=== PATIENT | female | born 2005 | race Hispanic/Latino ===

== ENCOUNTER 2024-04-10 13:59 | Emergency (ER) | payer OTHER, SELFPAY ==
--- NOTE | 2024-04-10 15:10 | ER ---
Nurse's Notes [facility] Name: Brendan Lindsey Age: 18 yrs Sex: Female : 2005 Arrival Date: 04/10/2024 Time: 13:59 Bed IW10 Private MD: Diagnosis: Acute tonsillitis, unspecified;Acute suppurative otitis media-bilateral Presentation: 04/10 14:18 Chief complaint: Patient states: R EAR PAIN WITH SORE THROAT x2 DAYS. Coronavirus bp screen: At this time, the client does not indicate any symptoms associated with coronavirus-19. Ebola Screen: No symptoms or risks identified at this time. Initial Sepsis Screen: Does the patient meet any 2 criteria? No. Patient's initial sepsis screen is negative. Does the patient have a suspected source of infection? No. Patient's initial sepsis screen is negative. Risk Assessment: Do you want to hurt yourself or someone else?. Onset of symptoms is unknown. 14:18 Method Of Arrival: Ambulatory bp 14:18 Acuity: LALA 4 bp Triage Assessment: 14:19 General: Appears uncomfortable, Behavior is calm, cooperative, appropriate for age. bp Pain: Complains of pain in right ear and neck. EENT: Throat is reddened. Neuro: No deficits noted. Cardiovascular: No deficits noted. Respiratory: No deficits noted. GI: No signs and/or symptoms were reported involving the gastrointestinal system. : No signs and/or symptoms were reported regarding the genitourinary system. Derm: No deficits noted. Musculoskeletal: No deficits noted. Historical: - Allergies: 14:19 No Known Allergies; bp - Home Meds: 14:19 None [Active]; bp - PMHx: 14:19 None; bp - Immunization history:: Adult Immunizations. - Infectious Disease History:: Denies. - Social history:: Smoking status: Patient denies any tobacco usage or history of. Vital Signs: 14:18 BP 121 / 81; Pulse 75; Resp 18; Temp 98.4; Pulse Ox 100% ; bp ED Course: 14:03 Patient arrived in ED. ra3 14:04 Jose Singh PA is PHCP. cp 14:04 Samy Moss MD is Attending Physician. cp 14:19 Triage completed. bp 14:19 Arm band placed on. bp 16:03 Ned, Kylee, RN is Primary Nurse. iw Administered Medications: 16:12 Drug: Dexamethasone PO 10 mg PO once Route: PO; iw 16:12 Drug: Amoxicillin-Clavulanate PO 875 mg PO once Route: PO; iw 16:12 Drug: Lortab PO Liquid 15 ml PO once Route: PO; iw 16:12 Drug: Ibuprofen PO 600 mg PO once Route: PO; iw Outcome: 15:10 Discharge ordered by MD. cp 15:31 Patient left the ED. iw 16:13 Patient left the ED. iw Signatures: Kylee Marino, RN RN iw Jose Singh PA PA Luis Carlos Espino, RN RN Daisha Landers 3
--- NOTE | 2024-04-10 15:10 | EDPHYS ---
Physician Documentation [facility] Name: Brendan Lindsey Age: 18 yrs Sex: Female : 2005 Arrival Date: 04/10/2024 Time: 13:59 Bed IW10 Private MD: ED Physician Samy Moss HPI: 04/10 14:30 This 18 yrs old Female presents to ER via Ambulatory with complaints of Sore cp Throat - x3days, Ear Pain. 14:30 The patient presents with sore throat. The patient describes throat pain as scratchy. cp Onset: The symptoms/episode began/occurred 3 day(s) ago. 14:30 Severity of symptoms: in the emergency department the symptoms are unchanged, despite cp home interventions. Associated signs and symptoms: Pertinent positives: earache, Pertinent negatives cough, fever, headache. Historical: - Allergies: 14:19 No Known Allergies; bp - Home Meds: 14:19 None [Active]; bp - PMHx: 14:19 None; bp - Immunization history:: Adult Immunizations. - Infectious Disease History:: Denies. - Social history:: Smoking status: Patient denies any tobacco usage or history of. ROS: 14:35 Constitutional: Negative for body aches, chills, fever, cp 14:35 Eyes: Negative for injury, pain, redness, and discharge, cp 14:35 ENT: Positive for difficulty swallowing, ear pain, sore throat, Negative for drainage from ear(s), rhinorrhea, sinus congestion, sinus pain, difficulty handling secretions, 14:35 Respiratory: Negative for cough, shortness of breath, wheezing, 14:35 Abdomen/GI: Negative for abdominal pain, vomiting, diarrhea, constipation, 14:35 Neuro: Negative for headache, 14:35 All other systems are negative, Exam: 14:40 Constitutional: The patient appears in no acute distress, alert, awake, non-toxic, well cp developed, well nourished, 14:40 Head/Face: Normocephalic, atraumatic. cp 14:40 Eyes: Periorbital structures: appear normal, Conjunctiva: normal, no exudate, no injection, Sclera: no appreciated abnormality, Lids and lashes: appear normal, bilaterally, 14:40 ENT: External ear(s): are unremarkable, Ear canal(s): are normal, clear, TM's: bulging, bilaterally, erythema, that is moderate, bilaterally, Nose: is normal, Mouth: Lips: moist, Oral mucosa: moist, Posterior pharynx: Airway: no evidence of obstruction, patent, Tonsils: bilaterally enlarged, with erythema, with exudate, Uvula: midline, Voice: is normal, 14:40 Neck: ROM/movement: is normal, is supple, no meningismus, no nuchal rigidity, 14:40 Chest/axilla: Inspection: normal, 14:40 Cardiovascular: Rate: normal, 14:40 Respiratory: the patient does not display signs of respiratory distress, Respirations: normal, no use of accessory muscles, no retractions, labored breathing, is not present, Breath sounds: are clear throughout, no decreased breath sounds, no stridor, no wheezing, 14:40 Abdomen/GI: Exam negative for discomfort, distension, guarding, Inspection: abdomen appears normal, Vital Signs: 14:18 BP 121 / 81; Pulse 75; Resp 18; Temp 98.4; Pulse Ox 100% ; bp MDM: 14:16 Patient medically screened. cp 14:30 Differential diagnosis: apthous stomatitis, apthous ulcer, group A strep tonsillitis, cp influenza, laryngitis, mononucleosis, peritonsillar abscess pharyngitis, retropharyngeal abcess. 15:10 Data reviewed: vital signs, nurses notes, lab test result(s), and as a result, I will cp discharge patient. 15:10 Counseling: I had a detailed discussion with the patient and/or guardian regarding the cp historical points, exam findings, and any diagnostic results supporting the discharge/admit diagnosis, lab results, to return to the emergency department if symptoms worsen or persist or if there are any questions or concerns that arise at home. Administered Medications: 16:12 Drug: Dexamethasone PO 10 mg PO once Route: PO; iw 16:12 Drug: Amoxicillin-Clavulanate PO 875 mg PO once Route: PO; iw 16:12 Drug: Lortab PO Liquid 15 ml PO once Route: PO; iw 16:12 Drug: Ibuprofen PO 600 mg PO once Route: PO; iw Disposition Summary: 04/10/24 15:10 Discharge Ordered Notes: Location: Home cp Problem: new cp Symptoms: have improved cp Condition: Stable cp Diagnosis - Acute tonsillitis, unspecified cp - Acute suppurative otitis media - bilateral cp Followup: cp - With: Private Physician - When: 2 - 3 days - Reason: Worsening of condition Discharge Instructions: - Discharge Summary Sheet cp - Otitis Media, Adult cp - Tonsillitis cp Forms: - Medication Reconciliation Form cp - Antibiotic Education cp - Prescription Opioid Use cp - Patient Portal Instructions cp - Leadership Thank You Letter cp Prescriptions: - Lidocaine Viscous - take 5 milliliter ORAL route every 4-6 hours; 240 milliliter; Refills: 0, cp Product Selection Permitted - Augmentin 875-125 mg Oral Tablet - take 1 tablet ORAL route every 12 hours for 10 days; 20 tablet; Refills: 0, cp Product Selection Permitted - Ibuprofen 600 mg Oral tablet - take 1 tablet ORAL route every 8 hours As needed take with food; 30 tablet; cp Refills: 0, Product Selection Permitted Addendum: 04/12/2024 17:05 Co-signature as Attending Physician, Samy Moss MD I reviewed the patient's care r n provided by the Advanced Practice Provider and agree with the diagnosis and treatment plan. Signatures: Kylee Marino, RN Samy Bolivar MD MD rn Page, Corey, PA PA cp Luis Carlos Baca, RN RN bp
[2024-04-10 15:47] VITALS: BP 121/81; TEMP 98.4; O2SAT 100
[2024-04-10] MEDS ORDERED: AMOX/K CLAV 875 MG TAB ONE (16:05)
[2024-04-10] MEDS ORDERED: dexAMETHasone 4 MG TAB ONE (16:05)
[2024-04-10] MEDS ORDERED: IBUPROFEN 200 MG TAB PO ONE (16:06)
[2024-04-10] MEDS ORDERED: HYDROCOD 2.5mg-ACETAMIN 108mg/5mL Soln ONE (16:06)
== END 2024-04-10 16:13 | disposition home or self-care (01) ==
LOC: ER 13:59
DX: J03.90 Acute tonsillitis, unspecified (principal); H66.003 Acute suppurative otitis media without spontaneous rupture of ear drum, bilateral
CPT/HCPCS: 99282; J8540

== ENCOUNTER 2024-06-02 11:02 | Emergency (ER) | payer SELFPAY ==
--- OUTSIDE RECORDS SUMMARY | 2024-06-02 11:05 | XMS REPORT | Continuity of Care Document ---
Author Name Unknown Address [address] [place] [address] [facility] thconnect Address [address] [place] [address] Care Team Providers Care Thread Tool Grinder Set Up Operator Name Role Phone DARRICK MELTON Primary Care Physician Unavailab EFRA Rinaldi Attending Clinician Unavail YANCY Love Attending Clinician YANCY Bravo Attending Clinician Yancy Bravo MD Attending Clinician [phone] MURPHY TRIPP Attending Clinician Unavailable Nurse, [facility] Attending Clinician Un available Murphy Tripp MD Attending Clinician [phone] Doctor Unassigned, [place] Attending Clinician U eusebio 2, [facility] Attending Clinician Unavailable KRISTEN JACKSON Attending Clinician Unavailable Astrid Landaverde MD Attending Clinician [phone] Elías CAMPOS Attending Clinician Unavailable Elías Kay Attending Clinician [phone] Kristen Jackson PA-C Attending Clinician [phone] JENNIFER RAMOS Attending Clinician Unavailable Jennifer Ramos NP Attending Clinician [phone] ANGELAELIJAH JOHNSTON B Attending Clinician Unavailable AngelaAlba Vergaray B Attending Clinician [phone] AfuwapeDianakthomas O Attending Clinician Unavailab le Nurse, [facility] Attending Clinician Unava ilable Provider, [facility] Attending Clinician Unavailable Lala RN, Joyce Baker Attending Clinician Unavailab le Only, [facility] Test Attending Clinician Unavailzoya Cochran MD, Poppy Attending Clinician [phone] POPPY COCHRAN Attending Clinician Unavailable Carmita Goldman Attending Clinician [phone] KRISTEN JACKSON Admitting Clinician Unavailable Payers Payer Name Policy Type Policy Number Effective Date Expirati on Date Source [facility] [id number] 2018 00:00:00 [facility] [place] [facility] [id number] 2024 00:00:00 Problems Condition Name Condition Details Condition Category Status Onset Date Resolution Date Last Treatment Date Treating Clinician Comments Source Encounter for management and injection of depo-Prove ra Encounter for management and injection of depo-Prove ra Disease Active 2022-07 0- 00:00: 00 [facility] Iron deficiency anemia due to chronic blood loss Iron deficiency anemia due to chronic blood loss Disease Active 01-18 00:00: 00 [facility] No known active problems No known active problems Disease [facility] Allergies, Adverse Reactions, Alerts Allergy Name Allergy Type Status Severity Reaction(s) Onset Date Inactive Date Treating Clinician Comments Source Unable to Assess DA Active U 09-23 00:00: 00 [facility] No Known Drug Allergie s DA Active U 09-23 00:00: 00 [facility] NO KNOWN ALLERGIE S Drug Class Active [facility] Social History Social Habit Start Date Stop Date Quantity Comments Source History SDOH Alcohol Std Drinks [facility] History SDOH Alcohol Binge [facility] History SDOH Alcohol Comment [facility] Gender identity [facility] of Social function 2024-03-28 00:00:00 2024-03-28 00:00:00 [facility] Alcoholic beverage intake 2024-03-28 00:00:00 2024-03-28 00:00:00 Lifetime non-drinker (finding) [facility] Alcohol intake 2023-04-26 00:00:00 2023-04-26 00:00:00 Lifetime non-drinker (finding) [facility] Exposure to SARS-CoV-2 (event) 2022-10-23 00:00:00 2022-11-02 16:50:00 Not sure [facility] Tobacco use and exposure 2022-08-03 00:00:00 2022-08-03 00:00:00 Smokeless tobacco non-user [facility] History SDOH Alcohol Frequency 2019-05-05 00:00:00 2019-05-05 00:00:00 1 [facility] Sex assigned at 2004 00:00:00 2005 00:00:00 [facility] Smoking Status Start Date Stop Date Source Never smoked tobacco [facility] Medications Ordered Medication Name Filled Medication Name Start Date Stop Date Current Medication? Ordering Clinician Indication Dosage Frequency Signature (SIG) Comments Components Source medroxyPROG ESTERone (DEPO-PROVE RA) syringe 150 mg 2022-07 016 17:00: 00 04-26 16:08 :00 No [id number] 150mg [facility] medroxyPROG ESTERone (DEPO-PROVE RA) syringe 150 mg 01-29 14:30: 00 01-29 13:52 :00 No [id number] 150mg [facility] NUVARING 0.12-0.015 mg/24 hr vaginal insert 01-18 00:00: 00 01-29 00:00 :00 No [id number] 1{each} Insert 1 Each into vagina every 3 (three) weeks. Insert vaginally and leave in place for 3 consecutiv e weeks, then remove for 1 week. [facility] NaCl 0.9% (NS) bolus infusion 1,000 mL 01-14 23:30: 00 01-14 23:36 :00 No 1000mL at 999 mL/hr, 1,000 mL, IV Infusion, ONCE, 1 dose, On Wed01/14/23 at 1830, STAT [facility] ondansetron (ZOFRAN (PF)) injection 4 mg 01-14 22:15: 00 01-14 22:51 :00 No 4mg 4 mg, Slow IV Push, ONCE, 1 dose, On Wed01/14/23 at 1715, DANY [facility] ondansetron 4 mg disintegrat ing tablet 01-14 00:00: 00 03-28 00:00 :00 No [id number] 4mg Take 1 tablet by mouth every 8 (eight) hours as needed for Nausea and Vomiting (N/V). [facility] NaCl 0.9% (NS) bolus infusion 1,000 mL 01-08 08:45: 00 01-08 08:48 :00 No 1000mL at 999 mL/hr, 1,000 mL, IV Infusion, ONCE, 1 dose, On Wed01/08/23 at 0345, DANY [facility] cloNIDine (CATAPRES) tablet 0.1 mg 01-08 08:45: 00 01-08 08:52 :00 No .1mg 0.1 mg, Oral, ONCE, 1 dose, On Wed01/08/23 at 0345, STAT [facility] diazePAM (VALIUM) tablet 5 mg 01-08 08:45: 00 01-08 08:52 :00 No 5mg 5 mg, Oral, ONCE, 1 dose, On Wed01/08/23 at 0345, DANY [facility] proMETHazin e (PHENERGAN) 12.5 mg in NaCl 0.9% (NS) 50 mL IV piggyback 01-08 08:00: 01-08 08:10 :00 No 12.5mg 12.5 mg, IV Piggyback, ONCE, 1 dose, On Wed01/08/23 at 0300, DANY [facility] clonazePAM (KLONOPIN) 0.5 mg tablet 01-08 00:00: 00 03-28 00:00 :00 No [id number] .5mg Take 1 tablet by mouth 2 (two) times daily as needed (anxiety and/or irritabili tiy). [facility] ondansetron 4 mg disintegrat ing tablet 01-08 00:00: 00 03-28 00:00 :00 No [id number] 4mg Take 1 tablet by mouth every 12 (twelve) hours as needed for Nausea and Vomiting (N/V). [facility] hydrOXYzine (VISTARIL) 25 mg capsule 01-08 00:00: 00 01-14 04:59 :00 No [id number] 25mg Take 1 capsule by mouth 3 (three) times daily as needed for Anxiety for up to 5 days. [facility] medroxyPROG ESTERone (DEPO-PROVE RA) injection 150 mg 11-03 20:30: 00 11-03 19:44 :00 No [id number] 150mg [facility] fluconazole 150 mg tablet 11-02 00:00: 00 01-08 00:00 :00 No [facility] cefTRIAXone (ROCEPHIN) injection 500 mg 08-07 20:45: 00 08-07 20:39 :00 No [id number] 500mg [facility] doxycycline hyclate 100 mg tablet 08-07 00:00: 00 01-08 00:00 :00 No [id number] 100mg Take 1 tablet by mouth in the morning and 1 tablet in the evening. [facility] doxycycline hyclate 100 mg tablet 08-06 00:00: 00 08-07 00:00 :00 No [id number] 100mg Take 1 tablet by mouth in the morning and 1 tablet in the evening. [facility] doxycycline hyclate 100 mg tablet 08-05 00:00: 08-06 00:00 :00 No [id number] 100mg Take 1 tablet by mouth in the morning and 1 tablet in the evening. Do all this for 7 days. [facility] medroxyPROG ESTERone (DEPO-PROVE RA) syringe 150 mg 08-03 23:30: 00 08-03 22:17 :00 No [id number] 150mg [facility] ibuprofen 600 mg tablet 2020-07 00:00: 01-08 00:00 :00 No [id number] 600mg Take 1 tablet by mouth every 8 (eight) hours as needed for Pain (scale 4-6). [facility] norgestimat e-ethinyl estradiol 0.25-35 mg-mcg per tablet 2018-07 00:00: 01-08 00:00 :00 No [id number] 2 tab QD until menses stops, then take 1 tab QD. Skip placebo pills and take active pills continuous ly. [facility] ferrous sulfate 325 mg (65 mg iron) EC tablet 2018-07 00:00: 00 03-28 00:00 :00 No [id number] 325mg Take 1 tablet by mouth 2 (two) times daily. [facility] proMETHazin e 25 mg tablet 2018-07 00:00: 01-08 00:00 :00 No [id number] 25mg Take 1 tablet by mouth every 6 (six) hours as needed for Nausea and Vomiting (N/V). [facility] Vital Signs Vital Name Observation Time Observation Value Comments S fatuma Systolic blood pressure 2024-03-28 20:28:00 135 mm[Hg] [facility] Diastolic blood pressure 2024-03-28 20:28:00 81 mm[Hg] [facility] Heart rate 2024-03-28 20:28:00 69 /min [facility] Respiratory rate 2024-03-28 20:28:00 16 /min [facility] Body height 2024-03-28 20:28:00 170.2 cm [facility] Body weight 2024-03-28 20:28:00 54.885 kg [facility] BMI 2024-03-28 20:28:00 18.95 kg/m2 [facility] Systolic blood pressure 2023-04-26 16:04:00 127 mm[Hg] [facility] Diastolic blood pressure 2023-04-26 16:04:00 76 mm[Hg] [facility] Heart rate 2023-04-26 16:04:00 76 /min [facility] Body temperature 2023-04-26 16:04:00 36.83 Sarah [facility] Respiratory rate 2023-04-26 16:04:00 18 /min [facility] Body weight 2023-04-26 16:04:00 59.693 kg [facility] BMI 2023-04-26 16:04:00 21.24 kg/m2 [facility] Body mass index (BMI) [Percentile] Per age and sex 2023-04-26 16:04:00 47.09 % [facility] Systolic blood pressure 2023-04-20 19:00:00 122 mm[Hg] [facility] Diastolic blood pressure 2023-04-20 19:00:00 84 mm[Hg] [facility] Heart rate 2023-04-20 19:00:00 64 /min [facility] Body temperature 2023-04-20 19:00:00 36.56 Sarah [facility] Body height 2023-04-20 19:00:00 167.6 cm [facility] Body weight 2023-04-20 19:00:00 59.875 kg [facility] BMI 2023-04-20 19:00:00 21.31 kg/m2 [facility] Body mass index (BMI) [Percentile] Per age and sex 2023-04-20 19:00:00 48.05 % [facility] Systolic blood pressure 2023-01-29 13:48:00 105 mm[Hg] [facility] Diastolic blood pressure 2023-01-29 13:48:00 64 mm[Hg] [facility] Heart rate 2023-01-29 13:48:00 65 /min [facility] Body temperature 2023-01-29 13:48:00 36.72 Sarah [facility] Respiratory rate 2023-01-29 13:48:00 18 /min [facility] Body height 2023-01-29 13:48:00 167.6 cm [facility] Body weight 2023-01-29 13:48:00 60.147 kg [facility] BMI 2023-01-29 13:48:00 21.40 kg/m2 [facility] Body mass index (BMI) [Percentile] Per age and sex 2023-01-29 13:48:00 49.96 % [facility] Systolic blood pressure 2023-01-18 20:42:00 110 mm[Hg] [facility] Diastolic blood pressure 2023-01-18 20:42:00 68 mm[Hg] [facility] Heart rate 2023-01-18 20:42:00 72 /min [facility] Body temperature 2023-01-18 20:42:00 36.78 Sarah [facility] Body weight 2023-01-18 20:42:00 59.33 kg [facility] Systolic blood pressure 2023-01-15 00:39:00 131 mm[Hg] [facility] Diastolic blood pressure 2023-01-15 00:39:00 79 mm[Hg] [facility] Heart rate 2023-01-15 00:39:00 69 /min [facility] Respiratory rate 2023-01-15 00:39:00 18 /min [facility] Oxygen saturation in Arterial blood by Pulse oximetry 2023-01-15 00:39:00 100 /min [facility] Body temperature 2023-01-14 20:55:00 36.61 Sarah [facility] Body weight 2023-01-14 20:55:00 61.236 kg [facility] BMI 2023-01-14 20:55:00 21.79 kg/m2 [facility] Body mass index (BMI) [Percentile] Per age and sex 2023-01-14 20:55:00 54.88 % [facility] Systolic blood pressure 2023-01-08 09:00:00 117 mm[Hg] [facility] Diastolic blood pressure 2023-01-08 09:00:00 69 mm[Hg] [facility] Heart rate 2023-01-08 09:00:00 95 /min [facility] Body temperature 2023-01-08 09:00:00 37 Sarah [facility] Respiratory rate 2023-01-08 09:00:00 18 /min [facility] Oxygen saturation in Arterial blood by Pulse oximetry 2023-01-08 09:00:00 100 /min [facility] Body height 2023-01-08 06:45:00 167.6 cm [facility] Body weight 2023-01-08 06:45:00 60.737 kg [facility] BMI 2023-01-08 06:45:00 21.61 kg/m2 [facility] Body mass index (BMI) [Percentile] Per age and sex 2023-01-08 06:45:00 52.78 % [facility] Systolic blood pressure 2022-11-03 19:41:00 121 mm[Hg] [facility] Diastolic blood pressure 2022-11-03 19:41:00 79 mm[Hg] [facility] Heart rate 2022-11-03 19:41:00 69 /min [facility] Body temperature 2022-11-03 19:41:00 37 Sarah [facility] Respiratory rate 2022-11-03 19:41:00 16 /min [facility] Body height 2022-11-03 19:41:00 170.2 cm [facility] Body weight 2022-11-03 19:41:00 66.679 kg [facility] BMI 2022-11-03 19:41:00 23.02 kg/m2 [facility] Body mass index (BMI) [Percentile] Per age and sex 2022-11-03 19:41:00 68.21 % [facility] Oxygen saturation in Arterial blood by Pulse oximetry 2022-11-03 19:41:00 99 /min [facility] Systolic blood pressure 2022-11-02 21:51:00 125 mm[Hg] [facility] Diastolic blood pressure 2022-11-02 21:51:00 72 mm[Hg] [facility] Heart rate 2022-11-02 21:51:00 97 /min [facility] Body temperature 2022-11-02 21:51:00 37 Sarah [facility] Respiratory rate 2022-11-02 21:51:00 16 /min [facility] Body height 2022-11-02 21:51:00 170.2 cm [facility] Body weight 2022-11-02 21:51:00 63.504 kg [facility] BMI 2022-11-02 21:51:00 21.93 kg/m2 [facility] Body mass index (BMI) [Percentile] Per age and sex 2022-11-02 21:51:00 57.21 % [facility] Oxygen saturation in Arterial blood by Pulse oximetry 2022-11-02 21:51:00 98 /min [facility] Systolic blood pressure 2022-08-07 20:20:00 132 mm[Hg] [facility] Diastolic blood pressure 2022-08-07 20:20:00 65 mm[Hg] [facility] Body height 2022-08-07 20:20:00 167.6 cm [facility] Body weight 2022-08-07 20:20:00 68.04 kg [facility] BMI 2022-08-07 20:20:00 24.21 kg/m2 [facility] Body mass index (BMI) [Percentile] Per age and sex 2022-08-07 20:20:00 77.75 % [facility] Systolic blood pressure 2022-08-03 21:25:00 125 mm[Hg] [facility] Diastolic blood pressure 2022-08-03 21:25:00 75 mm[Hg] [facility] Heart rate 2022-08-03 21:25:00 86 /min [facility] Body temperature 2022-08-03 21:25:00 37.22 Sarah [facility] Respiratory rate 2022-08-03 21:25:00 18 /min [facility] Body height 2022-08-03 21:25:00 162.6 cm [facility] Body weight 2022-08-03 21:25:00 67.586 kg [facility] BMI 2022-08-03 21:25:00 25.58 kg/m2 [facility] Body mass index (BMI) [Percentile] Per age and sex 2022-08-03 21:25:00 84.73 % [facility] Procedures Procedure Date / Time Performed Performing Clinician Source POCT TEST 2024-03-28 00:00:00 Yancy Alcaraz [facility] POCT TEST 2023-04-20 00:00:00 Murphy Tripp [facility] POCT TEST 2023-01-29 13:52:00 Murphy Tripp [facility] CONSENT FOR CONTRACEPTION 2023-01-29 05:01:00 Doctor Unassigned, [place] [facility] POCT TEST 2023-01-14 23:45:00 Elías Campos [facility] URINALYSIS 2023-01-14 23:41:00 Elías Campos [facility] ASSIGNMENT OF BENEFITS 2023-01-14 21:48:15 Docto r Unassigned, [place] [facility] LIPASE 2023-01-14 21:13:00 Elías Campos [facility] MAGNESIUM 2023-01-14 21:13:00 Elías Campos [facility] COMP. METABOLIC PANEL ([id number]) 2023-01-14 21:13:00 Elías Campos [facility] CBC WITH DIFF 2023-01-14 21:13:00 Elías Campos [facility] CONSENT/REFUSAL FOR DIAGNOSIS AND TREATMENT 2023-01-14 20:30:50 Doctor Unassigned, [place] [facility] THYROID STIMULATING HORMONE 2023-01-08 07:14:00 Jennifer Ramos [facility] COMP. METABOLIC PANEL ([id number]) 2023-01-08 07:14:00 Jennifer Ramos [facility] IRON PANEL 2023-01-08 07:14:00 Adam Jacques [facility] ETHANOL 2023-01-08 07:14:00 Jennifer Ramos [facility] CBC WITH DIFF 2023-01-08 07:14:00 Jennifer Ramos [facility] URINALYSIS 2023-01-08 07:14:00 Jennifer Ramos [facility] POCT TEST 2023-01-08 07:14:00 Jennifer Raoms [facility] URINE DRUG (IMMUNOASSAY) - COMPREHENSIVE DRUG SCREEN W/O REFLEX 2023-01-08 07:14:00 Jennifer Ramos [facility] CONSENT/REFUSAL FOR DIAGNOSIS AND TREATMENT 2023-01-08 06:40:45 Doctor Unassigned, [place] [facility] POCT TEST 2022-11-02 22:05:00 Elijah Miller [facility] CONSENT/REFUSAL FOR DIAGNOSIS AND TREATMENT 2022-11-02 21:43:43 Doctor Unassigned, [place] [facility] US PELVIS COMPLETE WITH TRANSVAGINAL 2022-08-14 19:36:19 Kristen Jackson [facility] NOTICE OF PRIVACY PRACTICES 2022-08-14 19:07:27 Doctor Unassigned, [place] [facility] CONSENT/REFUSAL FOR DIAGNOSIS AND TREATMENT 2022-08-03 21:16:55 Doctor Unassigned, [place] [facility] POCT TEST 2022-08-03 00:00:00 Rayna Jackson [facility] Encounters Start Date/Time End Date/Time Encounter Type Admission Type Attending [facility] Care Department Encounter ID Source 2021-05-13 03:21:11 Emergency [facility] [id number] [facility] 2024-05-06 14:09:34 2024-05-06 14:09:34 Outpatient SFA [id number] Jose Gupta 2024-03-29 08:15:00 2024-03-29 08:15:00 Outpatient R EFRA DUONG [facility] [id number] [facility] 2024-03-28 15:45:00 2024-03-28 15:45:00 [facility] 1.2.840.114 350.1.13.10 4.2.7.2.686 [id number] 134 [id number] [facility] 2024-03-28 15:45:00 2024-03-28 15:44:53 Outpatient R RUBIO-PATRICIO S, YANCY RUBIO-PATRICIO S, YANCY [facility] [id number] [facility] 2024-03-28 15:00:00 2024-03-28 15:00:00 Outpatient R RUBIO-PATRICIO S, YANCY RUBIO-PATRICIO S, YANCY [facility] [id number] [facility] 2024-03-28 15:00:00 2024-03-28 15:00:00 Outpatient R RUBIO-PATRICIO S, YANCY RUBIO-PATRICIO S, YANCY [facility] [id number] [facility] 2023-07-19 09:30:00 2023-07-19 09:30:00 Outpatient R MURPHY TRIPP [facility] [id number] [facility] 2023-04-26 10:30:00 2023-04-26 10:53:09 Outpatient R MURPHY TRIPP [facility] [id number] [facility] 2023-04-26 10:30:00 2023-04-26 10:53:09 Nurse Visit Nurse, [facility] Murphy Tripp [facility] 1.2.840.114 350.1.13.10 4.2.7.2.686 [id number] [facility] 2023-04-21 00:00:00 2023-04-21 00:00:00 Patient Secure Msg Doctor Unassigned, [place] [facility] 1.2.840.114 350.1.13.10 4.2.7.2.686 [id number] [facility] 2023-04-21 00:00:00 2023-04-21 00:00:00 Telephone Murphy Tripp [facility] 1.2.840.114 350.1.13.10 4.2.7.2.686 [id number] [facility] 2023-04-21 00:00:00 2023-04-21 00:00:00 Telephone Murphy Tripp [facility] 1.2.840.114 350.1.13.10 4.2.7.2.686 [id number] [facility] 2023-04-20 14:45:00 2023-04-20 14:59:32 End Polisher Visit 2, [facility] Murphy Tripp [facility] 1.2.840.114 350.1.13.10 4.2.7.2.686 [id number] [facility] 2023-04-20 14:00:00 2023-04-20 14:42:19 Outpatient R CYNTHIA TRIPPEN [facility] [id number] [facility] 2023-04-20 14:00:00 2023-04-20 14:42:19 Office Visit Murphy Tripp [facility] 1.2.840.114 350.1.13.10 4.2.7.2.686 [id number] [facility] 2023-01-29 15:00:00 2023-01-29 15:00:00 Outpatient R [facility] [id number] [facility] 2023-01-29 08:00:00 2023-01-29 08:47:44 Outpatient R MURPHY TRIPP [facility] [id number] [facility] 2023-01-29 08:00:00 2023-01-29 08:47:44 Nurse Visit Nurse, [facility] Adum, Murphy Garcia [facility] 1..840.114 350.1.13.10 4.2.7.2.686 [id number] [facility] 2023-01-29 00:00:00 2023-01-29 00:00:00 Orders Only Doctor Unassigned, [place] [facility] 1..840.114 350.1.13.10 4.2.7.2.686 [id number] [facility] 2023-01-27 00:00:00 2023-01-27 00:00:00 Patient Secure Msg Doctor Unassigned, [place] [facility] 1..840.114 350.1.13.10 4.2.7.2.686 [id number] [facility] 2023-01-26 14:30:00 2023-01-26 14:30:00 Outpatient R [facility] [id number] [facility] 2023-01-25 00:00:00 2023-01-25 00:00:00 Telephone Murphy Tripp [facility] 1..840.114 350.1.13.10 4.2.7.2.686 [id number] [facility] 2023-01-18 15:30:00 2023-01-18 16:17:02 Outpatient R MURPHY TRIPP [facility] [id number] [facility] 2023-01-18 15:30:00 2023-01-18 16:17:02 Office Visit Murphy Tripp [facility] 1.2.840.114 350.1.13.10 4.2.7.2.686 [id number] [facility] 2023-01-14 15:56:00 2023-01-14 19:43:00 Emergency X ANDRES, Elías [facility] ERT [id number] [facility] 2023-01-14 15:56:00 2023-01-14 19:43:00 Emergency Elías Campos [facility] 1.2.840.114 350.1.13.10 4.2.7.2.686 [id number] [facility] 2023-01-14 00:00:00 2023-01-14 00:00:00 Telephone DamienKristen berger [facility] 1.2.840.114 350.1.13.10 4.2.7.2.686 [id number] [facility] 2023-01-08 01:51:00 2023-01-08 04:25:00 Emergency X JENNIFER RAMOS [facility] ERT [id number] [facility] 2023-01-08 01:51:00 2023-01-08 04:25:00 Emergency Jennifer Ramos [facility] 1.2.840.114 350.1.13.10 4.2.7.2.686 [id number] [facility] 2022-11-24 14:30:00 2022-11-24 14:30:00 Outpatient R YANCY CHERY MARISOL [facility] [id number] [facility] 2022-11-03 14:30:00 2022-11-03 14:42:51 Outpatient R KRISTEN JACKSON [facility] [id number] [facility] 2022-11-03 14:30:00 2022-11-03 14:42:51 Nurse Visit Nurse, [facility] Kristen Jackson [facility] 1.2.840.114 350.1.13.10 4.2.7.2.686 [id number] [facility] 2022-11-02 16:54:00 2022-11-02 17:46:00 Emergency X ELIJAH MILLER [facility] ERT [id number] [facility] 2022-11-02 16:54:00 2022-11-02 17:46:00 Emergency Elijah Miller [facility] 1..840.114 350.1.13.10 4.2.7.2.686 [id number] [facility] 2022-11-02 14:00:00 2022-11-02 14:00:00 Outpatient R [facility] [id number] [facility] 2022-09-23 12:45:00 2022-09-23 12:45:00 Emergency Emergency JenniferPaige cronin [facility] [id number] [facility] 2022-09-23 12:45:00 2022-09-23 12:45:00 Emergency [facility] [id number] [facility] 2022-08-17 00:00:00 2022-08-17 00:00:00 Telephone [facility] 1..840.114 350.1.13.10 4.2.7.2.686 [id number] [facility] 2022-08-14 13:08:27 2022-08-14 23:59:00 Outpatient R [facility] [id number] [facility] 2022-08-14 13:00:00 2022-08-14 23:59:00 Hospital Encounter Kristen Jackson [facility] 1.2.840.114 350.1.13.10 4.2.7.2.686 [id number] [facility] 2022-08-14 00:00:00 2022-08-14 00:00:00 Orders Only Doctor Unassigned, [place] [facility] 1.2.840.114 350.1.13.10 4.2.7.2.686 [id number] [facility] 2022-08-07 14:00:00 2022-08-07 14:15:00 Nurse Visit Nurse, [facility] 1.2.84.114 350.1.13.10 4.2.7.2.686 [id number] [facility] 2022-08-07 14:00:00 2022-08-07 14:00:00 Outpatient R [facility] [id number] [facility] 2022-08-05 00:00:00 2022-08-05 00:00:00 Case Management [facility] 1.2.840.114 350.1.13.10 4.2.7.2.686 [id number] [facility] 2022-08-05 00:00:00 2022-08-05 00:00:00 Telephone Renetta [facility] BUILDING 1.2.840.114 350.1.13.10 4.2.7.2.686 [id number] [facility] 2022-08-03 15:00:00 2022-08-03 16:18:43 Outpatient R [facility] [id number] [facility] 2022-08-03 15:00:00 2022-08-03 16:18:43 Office Visit Kristen Jackson [facility] 1.2840.114 350.1.13.10 4.2.7.2.686 [id number] [facility] 2022-08-03 00:00:00 2022-08-03 00:00:00 Orders Only Doctor Unassigned, [place] [facility] 1.2840.114 350.1.13.10 4.2.7.2.686 [id number] [facility] 2022-08-03 00:00:00 2022-08-03 00:00:00 Letter (Out) Kristen Jackson [facility] 1.2840.114 350.1.13.10 4.2.7.2.686 [id number] 134 [id number] [facility] 2022-07-30 00:00:00 2022-07-30 00:00:00 Case Management Kristen Jackson [facility] 1.2840.114 350.1.13.10 4.2.7.2.686 [id number] [facility] 2021-07-17 00:00:00 2021-07-17 00:00:00 Telephone Nurse, [facility] 1.2840.114 350.1.13.10 4.2.7.2.686 [id number] [facility] 2021-07-17 00:00:00 2021-07-17 00:00:00 Telephone Provider, [facility] 1.2840.114 350.1.13.10 4.2.7.2.686 [id number] [facility] 2021-07-16 00:00:00 2021-07-16 00:00:00 Letter (Out) Joyce Reeves [facility] 1.2840.114 350.1.13.10 4.2.7.2.686 [id number] [facility] 2021-07-16 00:00:00 2021-07-16 00:00:00 Telephone Provider, [facility] 1.20.114 350.1.13.10 4.2.7.2.686 [id number] [facility] 2021-07-14 12:45:00 2021-07-14 13:00:00 Laboratory Only Only, Poppy Osman [facility] 1.2840.114 350.1.13.10 4.2.7.2.686 [id number] [facility] 2021-07-14 12:45:00 2021-07-14 12:45:00 Outpatient R SHAH[facility]AR [facility] [id number] [facility] 2021-07-14 00:00:00 2021-07-14 00:00:00 Orders Only Doctor Unassigned, [place] [facility] 1.2840.114 350.1.13.10 4.2.7.2.686 [id number] [facility] 2021-04-12 20:29:00 2021-04-12 21:50:00 Emergency Evaristoilya Carmita [facility] 1.2.114 350.1.13.10 4.2.7.2.686 [id number] [id number] [facility] Results Test Description Test Time Test Comments Results Result Co mments Source CULTURE, [id number] 11:36:05SPECIMEN NUMBER: [id number] CULTURE, URINE SPECIMEN NUMBER: [id number] SOURCE: URINE REPORT STATUS: FINAL ISOLATE NUMBER 1: IDENTIFICATION: 05/08/2024 <10,000 CFU/ML STREPTOCOCCUS AGALACTIAE (GROUP B) ADDITIONAL OBSERVATIONS: Group B Streptococci (Streptococcus agalactiae) are uniformly susceptible to the recommended (Penicillin G) and alternative (Ampicillin or Cefazolin) treatment regimens; therefore susceptibility testing is not indicated for these agents. Resistance to Clindamycin and Erythromycin has been reported. Note: Urine cultures with low colony counts of Group B Streptococcus orurine cultures with mixed growth containing this organism can be an indication of cervicovaginal colonization. The CDC recommends proactive management of all patients with urine cultures positive for Group B Streptococcus. ADDITIONAL OBSERVATIONS: 05/08/2024 10,000 - 100,000 CFU/ML UROGENITAL DEA PRESENT NO COMMON PATHOGENSPOCT [id number] 20:24:00* Test Item Value Reference Range Interpretation Comme nts POCT PREG (test code = 1605) Negative On board controls acceptable with C Line (test code = 3574) Yes POCT PREG LOT # (test code = 3575) POCT PREG TEST DATE ( test code = 3576) [facility] [id number] 19:00:00* Test Item Value Reference Range Interpretation Comme nts POCT PREG (test code = 1605) Negative On board controls acceptable with C Line (test code = 3574) Yes POCT PREG LOT # (test code = 3575) POCT PREG TEST DATE ( test code = 3576) [facility] [id number] 19:00:00* Test Item Value Reference Range Interpretation Comme nts POCT PREG (test code = 1605) Negative On board controls acceptable with C Line (test code = 3574) Yes POCT PREG LOT # (test code = 3575) POCT PREG TEST DATE ( test code = 3576) [facility] [id number] 13:52:00* Test Item Value Reference Range Interpretation Comme nts POCT PREG (test code = 1605) Negative On board controls acceptable with C Line (test code = 3574) Yes POCT PREG LOT # (test code = 3575) POCT PREG TEST DATE ( test code = 3576) Lab Interpretation (test cod e = 03675-1) Normal [facility] [id number] 23:45:00* Test Item Value Reference Range Interpretation Comme nts POCT PREG (test code = 1605) Negative On board controls acceptable with C Line (test code = 3574) Yes Lab Interpretation (test cod e = 07568-9) [facility] 22:17:18* Test Item Value Reference Range Interpretation Comme nts MAGNESIUM (test code = 2960906737) 2.1 mg/dL 1.7-2.4 Lab Interpretation (test cod e = 97632-1) [id number] 22:16:58* Test Item Value Reference Range Interpretation Comme nts NA (test code = 4107633500) 142 mmol/L 135-145 K (test code = 0933614134) 4.6 mmol/L 3.5-5.0 CL (test code = 3392693518) 105 mmol/L 98-108 CO2 TOTAL (test code = 4084046105) 26 mmol/L 23-31 AGAP (test code = 9109098780) 11 2-16 BUN (test code = 3464289856) 7 mg/dL 7-23 GLUCOSE (test code = 4805885838) 96 mg/dL 70-110 CREATININE (test code = 0567165922) 0.61 mg/dL 0.50-1.04 TOTAL BILI (test code = 3564140363) 0.3 mg/dL 0.1-1.1 CALCIUM (test code = 8708145884) 9.3 mg/dL 8.6-10.6 T PROTEIN (test code = 3390880554) 7.8 g/dL 6.3-8.2 ALBUMIN (test code = 4990271758) 4.4 g/dL 3.5-5.0 ALK PHOS (test code = 7587261417) 74 U/L 34-122 ALTv (test code = 1742-6) 24 U/L 5-35 AST(SGOT) (test code = 1435428975) 23 U/L 13-40 eGFR (test code = 0420993114) 127.7 mL/min/1.73m2 TREVOR (test code = TREVOR) Association of Glomerular Filtration Rate (GFR) and Staging of Kidney Disease* + + +- +| GFR (mL/min/1.73 m2) ?| With Kidney Damage ?| ?Without Kidney Damage+ ------+ ----+ ------+| ?>90 ?| ?Stage one ?| ? Normal ?+ -+ + -+| ?60-89 ?| ?Stage two ?| ? Decreased GFR ? + + +- +| ?30-59 ?| ?Stage three ?| ? Stage three ? + + +- +| ?15-29 ?| ?Stage four ? | ? Stage four ?+ -+ + -+| ?<15 (or dialysis) ? ?| ?Stage five ? | ? Stage five ?+ -+ + -+ *Each stage assumes the associated GFR level has been in effect for at least three months. ?Stages 1 to 5, with or without kidney disease, indicate chronic kidney disease. Notes: Determination of stages one and two (with eGFR >59mL/min/1.73 m2) requires estimation of kidney damage for at least three months as defined by structural or functional abnormalities of the kidney, manifested by either:Pathological abnormalities or Markers of kidney damage (including abnormalities in the composition of the blood or urine or abnormalities in imaging tests). [facility]16:37* Test Item Value Reference Range Interpretation Comme nts LIPASE (test code = 4346039492) 65 U/L 0-220 Lab Interpretation (test cod e = 77298-2) Normal [facility] [id number] 22:04:59* Test Item Value Reference Range Interpretation Comme nts WBC (test code = 6690-2) 9.18 See_Comment [Automated [employer]] The system which generated this result transmitted reference range: 4.50 - 13.50 10*3/?L. The reference range was not used to interpret this result as normal/abnormal. RBC (test code = 789-8) 4.24 See_Comment [Automated [employer]] The system which generated this result transmitted reference range: 4.10 - 5.10 10*6/?L. The reference range was not used to interpret this result as normal/abnormal. HGB (test code = 718-7) 8.5 g/dL 12.0-16.0 L HCT (test code = 4544-3) 29.1 % 36.0-45.0 L MCV (test code = 787-2) 68.6 fL 78.0-95.0 L MCH (test code = 785-6) 20.0 pg 26.0-32.0 L MCHC (test code = 786-4) 29.2 g/dL 32.0-36.0 L RDW-SD (test code = 64029-9) 43.1 fL 38.5-49.0 RDW-CV (test code = 788-0) 17.8 % 11.5-14.0 H PLT (test code = 777-3) 355 See_Comment [Automated messa ge] The system which generated this result transmitted reference range: 135 - 361 10*3/?L. The reference range was not used to interpret this result as normal/abnormal. MPV (test code = 36514-4) 11.8 fL 9.4-13.3 NRBC/100 WBC (test code = 8025616681) 0.0 See_Comment [Automated me ssage] The system which generated this result transmitted reference range: 0.0 - 10.0 /100 WBCs. The reference range was not used to interpret this result as normal/abnormal. NRBC x10^3 (test code = 4378886818) See_Comment [Automated messa ge] The system which generated this result transmitted reference range: 10*3/?L. The reference range was not used to interpret this result as normal/abnormal. GRAN MAT (NEUT) % (test code = 770-8) 80.7 % IMM GRAN % (test code = 6588471977) 0.40 % LYMPH % (test code = 736-9) 15.5 % MONO % (test code = 5905-5) 2.9 % EOS % (test code = 713-8) 0.1 % BASO % (test code = 706-2) 0.4 % GRAN MAT x10^3(ANC) (test code = 7609194063) 7.40 10*3/uL 1.50-10.30 IMM GRAN x10^3 (test code = 5737939818) 0.04 10*3/uL 0.00-0.06 LYMPH x10^3 (test code = 731-0) 1.42 10*3/uL 0.70-7.40 MONO x10^3 (test code = 742-7) 0.27 10*3/uL 0.00-0.50 EOS x10^3 (test code = 711-2) 0.00-0.40 BASO x10^3 (test code = 704-7) 0.04 10*3/uL 0.00-0.10 Lab Interpretation (test code = 59989-9) Abnormal [facility] [id number] 08:59:00* Test Item Value Reference Range Interpretation Comme nts IRON (test code = 8141100318) 109 ug/dL 50-160 TIBC (test code = 4015116886) 542 ug/dL 250-410 H % FE SAT (test code = 6757726329) 20 % 20-50 Lab Interpretation (test cod e = 56094-5) Abnormal [facility] WITH [id number] 08:35:35* Test Item Value Reference Range Interpretation Comme nts WBC (test code = 6690-2) 9.25 See_Comment [Automated [employer]] The system which generated this result transmitted reference range: 4.50 - 13.50 10*3/?L. The reference range was not used to interpret this result as normal/abnormal. RBC (test code = 789-8) 4.42 See_Comment [Automated [employer] ge] The system which generated this result transmitted reference range: 4.10 - 5.10 10*6/?L. The reference range was not used to interpret this result as normal/abnormal. HGB (test code = 718-7) 8.8 g/dL 12.0-16.0 L HCT (test code = 4544-3) 29.9 % 36.0-45.0 L MCV (test code = 787-2) 67.6 fL 78.0-95.0 L MCH (test code = 785-6) 19.9 pg 26.0-32.0 L MCHC (test code = 786-4) 29.4 g/dL 32.0-36.0 L RDW-SD (test code = 50069-0) 41.0 fL 38.5-49.0 RDW-CV (test code = 788-0) 17.1 % 11.5-14.0 H PLT (test code = 777-3) 312 See_Comment [Automated [employer] ge] The system which generated this result transmitted reference range: 135 - 361 10*3/?L. The reference range was not used to interpret this result as normal/abnormal. MPV (test code = 00783-9) 11.5 fL 9.4-13.3 IPF % (test code = 8781991974) 4.6 % 0.0-7.4 Platelet count measured by fluorescence method. NRBC/100 WBC (test code = 1250936619) 0.0 See_Comment [Automated [employer] ssage] The system which generated this result transmitted reference range: 0.0 - 10.0 /100 WBCs. The reference range was not used to interpret this result as normal/abnormal. NRBC x10^3 (test code = 0346585841) See_Comment [Automated [employer]] The system which generated this result transmitted reference range: 10*3/?L. The reference range was not used to interpret this result as normal/abnormal. GRAN MAT (NEUT) % (test code = 770-8) 59.1 % IMM GRAN % (test code = 8797220894) 0.20 % LYMPH % (test code = 736-9) 33.4 % MONO % (test code = 5905-5) 6.7 % EOS % (test code = 713-8) 0.1 % BASO % (test code = 706-2) 0.5 % GRAN MAT x10^3(ANC) (test code = 6163862776) 5.46 10*3/uL 1.50-10.30 IMM GRAN x10^3 (test code = 5931319261) 0.00-0.06 LYMPH x10^3 (test code = 731-0) 3.09 10*3/uL 0.70-7.40 MONO x10^3 (test code = 742-7) 0.62 10*3/uL 0.00-0.50 H EOS x10^3 (test code = 711-2) 0.00-0.40 BASO x10^3 (test code = 704-7) 0.05 10*3/uL 0.00-0.10 Lab Interpretation (test code = 28908-9) Abnormal [facility] [id number] 08:30:38 * Test Item Value Reference Range Interpretation Comme nts TSH (test code = 5265338940) 1.34 See_Comment [Automated messa ge] The system which generated this result transmitted reference range: 0.45 - 4.70 mIU/L. The reference range was not used to interpret this result as normal/abnormal. Lab Interpretation (test code = 81754-5) Normal [facility]23-[facility] 08:01:39 ALCOHOL<10mg/dL01/08/2023 3:01 AM [facility]<10 Rbqapfsn23-130 Toxic>100 Depression of WINDOWS PHONE DEVELOPER>400 Fatalities [facility]fieldCOM. METABOLIC PANEL (95953)2023-01-08 07:54:04* Test Item Value Reference Range Interpretation Comme nts NA (test code = 9477370052) 144 mmol/L 135-145 K (test code = 6336867559) 4.3 mmol/L 3.5-5.0 CL (test code = 1829231467) 106 mmol/L 98-108 CO2 TOTAL (test code = 5310254199) 24 mmol/L 23-31 AGAP (test code = 7133312824) 14 2-16 BUN (test code = 9949404049) 8 mg/dL 7-23 GLUCOSE (test code = 7907260753) 92 mg/dL 70-110 CREATININE (test code = 9262021465) 0.73 mg/dL 0.50-1.04 TOTAL BILI (test code = 5962006154) 0.3 mg/dL 0.1-1.1 CALCIUM (test code = 2128302043) 9.5 mg/dL 8.6-10.6 T PROTEIN (test code = 2483210959) 8.2 g/dL 6.3-8.2 ALBUMIN (test code = 0797453026) 4.7 g/dL 3.5-5.0 ALK PHOS (test code = 5212339003) 60 U/L 34-122 ALTv (test code = 1742-6) 14 U/L 5-35 AST(SGOT) (test code = 2111622919) 21 U/L 13-40 eGFR (test code = 3879858710) 103.8 mL/min/1.73m2 TREVOR (test code = TRVEOR) Association of Glomerular Filtration Rate (GFR) and Staging of Kidney Disease* + + +- +| GFR (mL/min/1.73 m2) ?| With Kidney Damage ?| ?Without Kidney Damage+ ------+ ----+ ------+| ?>90 ?| ?Stage one ?| ? Normal ?+ -+ + -+| ?60-89 ?| ?Stage two ?| ? Decreased GFR ? + + +- +| ?30-59 ?| ?Stage three ?| ? Stage three ? + + +- +| ?15-29 ?| ?Stage four ? | ? Stage four ?+ -+ + -+| ?<15 (or dialysis) ? ?| ?Stage five ? | ? Stage five ?+ -+ + -+ *Each stage assumes the associated GFR level has been in effect for at least three months. ?Stages 1 to 5, with or without kidney disease, indicate chronic kidney disease. Notes: Determination of stages one and two (with eGFR >59mL/min/1.73 m2) requires estimation of kidney damage for at least three months as defined by structural or functional abnormalities of the kidney, manifested by either:Pathological abnormalities or Markers of kidney damage (including abnormalities in the composition of the blood or urine or abnormalities in imaging tests). [facility] [id number] 07:14:00* Test Item Value Reference Range Interpretation Comme [facility] POCT PREG (test code = 1605) Negative On board controls acceptable with C Line (test code = 3574) Yes POCT PREG LOT # (test code = 3575) [id number] POCT PREG TEST DATE ( test code = 3576) 2024-04-16 Lab Interpretation (test cod e = 45212-6) Normal [facility] [id number] 22:05:00* Test Item Value Reference Range Interpretation Comme nts POCT PREG (test code = 1605) negative On board controls acceptable with C Line (test code = 3574) present POCT PREG LOT # test code = 5653) 50626 POCT PREG TEST DATE ( test code = 0391) 6722618 Lab Interpretation (test cod e = 52619-9) Normal [facility], [id number] 12:55:00* Test Item Value Reference Range Interpretation Comme nts Coronavirus NAAT, COVD19 (test code = VSWIJEG3ZLPS) Reference Range: Negative Coronavirus NAAT, COVD19 (test code = NXBORRV6YLZW0.1) ical-devices/emergenc l-dvp-wfdwdapgcjeeya. SARS-CoV-2 NAAT Result: (test code = SARS-CoV-2 NAAT Result:) Negative by RT-PCR Complete Blood Count Auto [id number] 12:55:00* Test Item Value Reference Range Interpretation Comme nts White Blood Count (test code = WBCT) 8.4 x10 3/uL 4.4-10.5 N Red Blood Count (test code = RBC) 4.82 x10 6/uL 3.75-5.20 N Hemoglobin (test code = HGBT) 9.7 g/dL 12.2-14.8 L Hematocrit (test code = HCTT) 34.0 % 36.5-44.4 L Mean Corpuscular Volume (mckenna t code = MCV) 70.50 fL 80.00-100.00 L Mean Corpuscular Hemoglobin (test code = MCH) 20.1 pg 27.0-32.5 L Mean Corpuscular HGB Conc (t est code = MCHC) 28.50 g/dL 32.00-37.50 L RDW Coefficient of Variation (test code = RDWCV) 16.8 % 11.5-14.5 H Platelet Count (test code = PLTT) 418 x10 3/uL 140.0-440.0 N Mean Platelet Volume (test c ode = MPV) 11.1 fL Immature Granulocytes % (Aut o) (test code = IMMGRAN%) 0.2 % 0.0-5.0 N Neutrophils % (Auto) (test c ode = NE%) 64.8 % 36.0-70.0 N Lymphocytes % (Auto) (test c ode = LY%) 28.0 % 12.0-44.0 N Monocytes % (Auto) (test cod e = MO%) 6.2 % 0.0-11.0 N Eosinophils % (Auto) (test c ode = EO%) 0.2 % 0.0-7.0 N Basophils % (Auto) (test cod e = BA%) 0.6 % 0.0-2.0 N Immature Granulocytes # (Aut o) (test code = IMMGRAN#) 0.02 x10 3/uL Neutrophils # (Auto) (test c ode = NE#) 5.5 x10 3/uL 1.6-7.4 N Lymphocytes # (Auto) (test c ode = LY#) 2.36 x10 3/uL 0.50-4.60 N Monocytes # (Auto) (test cod e = MO#) 0.52 x10 3/uL 0.00-1.20 N Eosinophils # (Auto) (test c ode = EO#) 0.02 x10 3/uL 0.00-0.74 N Basophils # (Auto) (test cod e = BA#) 0.05 x10 3/uL 0.00-0.21 N nRBC Abs (test code = NRBCA) 0 nRBC Pct (test code = NRBCP) 0 % UA, Urinalysis Rflx Cult/[id number] 12:55:00* Test Item Value Reference Range Interpretation Comme nts Color,Urine (test code = UCOL) Yellow Yellow Clarity,Urine (test code = UCLAR) Clear Clear Ph, Urine (test code = UPH) 6.0 5.0-9.0 N Specific May,Urine (test code = USG) 1.020 1.005-1.030 N Blood,Urine (test code = UBLD) Large mg/dL Negative A Protein,Urine (test code = UPRO) Trace mg/dL Negative A Glucose,Urine (UA) (test cod e = UGLU) Negative mg/dL Negative Ketones,Urine (test code = UKET) Trace mg/dL Negative A Nitrate,Urine (test code = UNIT) Negative Negative Bilirubin,Urine (test code = UBIL) Negative mg/dL Negative Urobilinogen,Urine (test cod e = UURO) 0.2 E.U./dL Normal Leukocyte Esterase,Urine (te st code = ULEU) Small mg/dL Negative A UF REFLEXUF REFLEXUrine [id number] 12:55:00* Test Item Value Reference Range Interpretation Comme nts RBC,Urine (test code = URBCUF) 6-10 /HPF 0-2 A WBC,Urine (test code = UWBCUF) 11-25 /HPF 0-5 A Epithelial Cell,Urine (test code = UECUF) 6-10 /HPF 0-5 A Casts,Urine (test code = UCASTUF) 0-5 /LPF None Seen Bacteria,Urine (test code = UBACTUF) None Seen /hpf None Seen UF REFLEXUF REFLEXComprehensive Metabolic [id number] 12:55:00* Test Item Value Reference Range Interpretation Comme nts SODIUM (test code = NA) 139.0 mmol/L 136.0-145.0 N Potassium,K (test code = K) 4.0 mmol/L 3.0-5.1 N Chloride (test code = CL) 107 mmol/L 98-107 N Carbon Dioxide (test code = CO2) 20 mmol/L 20-31 N Anion Gap (test code = GAP) 12 mmol/L 5-15 N Blood Urea Nitrogen (test code = BUN) 10 mg/dL 9-23 N Creatinine (test code = CREATT) 0.78 mg/dL 0.55-1.02 N Creatinine Clr Calc Pharmacy (test code = CRCLPHA) 109.50 mL/min Estimated Glomerular Filt Rate (test code = EGFR.XX) 113 See_Comment Reported eGFR is based on the CKD-EPI 2020 equation thatdoes not use a race coefficient. Additional information canbe found at:[email or web address]_whl_ egfr_summary_flyer 5.pdf ([email or web address]) [Automated message] The system which generated this result transmitted reference range: >=90 ml/min/1.73m2. The reference range was not used to interpret this result as normal/abnormal. BUN/Creatinine Ratio (test code = BCRATIO) 13 ratio 10-20 N Glucose (test code = GLU) 98 mg/dL 74-106 N Osmolality,Calculated (test code = OSMOC) 286.5 Calcium (test code = CA) 10.4 mg/dL 8.3-10.6 N Bilirubin,Total (test code = BILIT) 0.5 mg/dL 0.2-1.1 N Aspartate Amino Transferase (test code = AST) 17 U/L 0-34 N Alanine Aminotransferase (test code = ALT) 11 U/L 10-49 N Total Protein (test code = TP) 8.6 g/dL 5.7-8.2 H Albumin Level (test code = ALB) 5.4 g/dL 3.2-4.8 H Globulin (test code = GLOB) 3.2 mg/dL 2.3-3.5 N Albumin/Globulin Ratio (test code = AGRATIO) 1.7 ratio 0.8-2.0 N Alkaline Phosphatase (test code = ALP) 68 U/L 46-116 N Ethanol [id number] 12:55:00* Test Item Value Reference Range Interpretation Comme nts Ethanol (test code = ETOH) < 3 mg/dL The pharmacologi drew response to blood alcohol levels mayvary from individual to individual. The fatal concentrationhas been reported to be >400mg/dL. Drug Screen,[id number] 12:55:00* Test Item Value Reference Range Interpretation Comme nts PCP Phencyclidine Screen,Uri ne (test code = PCPU) Negative Negative Amphetamine Screen,Urine (te st code = AMPU) Negative Negative Methadone Screen,Urine (test code = METHU) Negative Negative Opiate Screen,Urine (test co de = UOPIS) Negative Negative Barbituates Screen,Urine (te st code = BARBU) Negative Negative Benzodiazepines Screen,Urine (test code = UBENZS) Positive Negative A Cocaine Screen,Urine (test c ode = UCOCS) Negative Negative Cannabinoid Screen,Urine (te st code = UTHCS) Positive Negative A Propoxyphene Screen, Urine ( test code = UPROP) Negative Negative HCG, Urine Qual (LAB)[id number] 12:55:00* Test Item Value Reference Range Interpretation Comme nts HCG, Urine, Qual (test code = HCGU) Negative Negative Smear [id number] 12:55:00* Test Item Value Reference Range Interpretation Comme nts Platelet Estimate (test code = PLTEST) Adequate Normal RBC Morphology (test code = RM) Abnormal Normal Hypochromasia (test code = HYPO) 2+ None Seen A Microcytosis (test code = MICROC) 1+ None Seen A POCT [id number] 22:11:00* Test Item Value Reference Range Interpretation Comme nts POCT PREG (test code = 1605) Negative On board controls acceptable with C Line (test code = 3574) Yes POCT PREG LOT # (test code = 3575) POCT PREG TEST DATE ( test code = 3576) [id number]11:00* Test Item Value Reference Range Interpretation Comme nts POCT PREG (test code = 1605) Negative On board controls acceptable with C Line (test code = 3574) Yes POCT PREG LOT # (test code = 3575) POCT PREG TEST DATE ( test code = 3576) [facility] Notes Date/Time Note Provider Source 2023-01-27 09:06:42 Formatting of this n ote might be different from the original. Per Provider- okay to come in as nurse visit for Depo and consents. [employer] message sent. MARYELLEN ORDONEZ RN 01/27/2023 9:07 AM Maryellen Ordonez RN [facility] 2023-01-25 12:24:08 Formatting of this n ote might be different from the original. Speaking with provider. MARYELLEN ORDONEZ RN 01/25/2023 12:[address] [facility] 2023-01-25 10:36:00 Formatting of this n ote might be different from the original. Patient states she recently switched to the ring last week but she has not used it. She is wanting to come in for the depo instead of the ring and is requesting call back at [phone]. Maria E Brooks [facility]"
[2024-06-02] MEDS ORDERED: NA CHLORIDE 0.9% 1,000 ML ONE ×2 (12:14→13:40)
[2024-06-02 12:30] LABS: Absolute Lymphocytes (CBC) 1.2 K/uL (0.7-4.9); Absolute Monocytes 0.3 K/uL (0.1-1.3); Absolute Neutrophil 6.3 K/uL (1.8-8.0); Basophils % 0.2 % (0-1.3); Lymphocytes % 15.4 % (15.3-44.8); MCH 27.6 pg (27.0-35.0); MCHC 32.5 g/dL (32.0-36.0); MCV 84.9 fL (80-100); Monocytes % 3.8 % (3.3-12.3); Neutrophils % 80.6 % (41.7-73.7); Platelets 266 thou/uL (152-406); RBC Red Blood Cell Count 5.07 M/uL (3.86-4.86); Red Cell Distribution Width 15.3 % (12.1-15.2)
[2024-06-02] MEDS ORDERED: ONDANSETRON 4 MG/2 ML VIAL ONE ×2 (12:32→13:33)
[2024-06-02 12:33] LABS: PT Prothrombin Time 13.7 SECONDS (9.4-12.5); PTT, Activated Partial Thromb 36.3 SECONDS (24.3-36.9); Protime INR 1.23
[2024-06-02 12:33] LABS: Specific Gravity 1.021 (1.005-1.030); Transitional Epithelial <5 /HPF (None Seen); Urine Bacteria 20-50 /HPF (<20); Urine Bilirubin NEGATIVE (Negative); Urine Blood Negative (Negative); Urine Clarity Extremely Turbid (Clear); Urine Color Yellow (Yellow); Urine Culture Reflex Order NOT NEEDED; Urine Glucose NEGATIVE (Negative); Urine Ketones NEGATIVE (Negative); Urine Microscopic Reflex YN ORDER UMIC; Urine Mucus Slight /HPF (None Seen); Urine Nitrite NEGATIVE (Negative); Urine Protein 1+ (Negative); Urine RBC <5 /HPF (None Seen); Urine Urobilinogen Normal (Normal)
[2024-06-02 12:40] LABS: Barbiturates NEGATIVE (NEGATIVE); Benzodiazepines POSITIVE (NEGATIVE); Cocaine NEGATIVE (NEGATIVE); METHAMPHETAM NEGATIVE (NEGATIVE); Methadone NEGATIVE (NEGATIVE); Opiates NEGATIVE (NEGATIVE); Phencyclidine NEGATIVE (NEGATIVE); THC Cannibis POSITIVE (NEGATIVE)
[2024-06-02 12:49] LABS: AST/SGOT 17 U/L (15-37); Albumin 4.4 g/dL (3.4-5.0); Albumin/Globulin Ratio 0.9 (1.1-1.8); Alkaline Phosphatase 86 U/L (45-117); Anion Gap 6.8 mEq/L (5.0-15.0); BUN Blood Urea Nitrogen 13 mg/dL (7-18); Bicarbonate 30 mEq/L (21-32); Bilirubin Direct 0.2 mg/dL (0-0.2); Bilirubin Indirect, Calculated 0.5 mg/dL (0.2-0.8); Bilirubin Total 0.7 mg/dL (0.2-1.0); Globulin 5.1 g/dL (2.3-3.5); Glomerular Filtration Rate 106 ml/min (=/>90); Glucose Level 119 mg/dL (74-106); Potassium 3.8 mEq/L (3.5-5.1); Protein, Total 9.5 g/dL (6.4-8.2); Sodium Level 135 mEq/L (136-145)
[2024-06-02 12:50] LABS: ALT/SGPT < 14 U/L (13-56)
[2024-06-02] MEDS ORDERED: PROMETHAZINE INJ 25 MG/ML AMP ONE (13:40)
[2024-06-02] MEDS ORDERED: CEFTRIAXONE 1000 MG/VIAL ONE (13:40)
--- NOTE | 2024-06-02 14:44 | ER ---
Nurse's Notes [facility] Name: Brendan Lindsey Age: 18 yrs Sex: Female : 2005 Arrival Date: 06/02/2024 Time: 11:02 Bed 3 Private MD: Diagnosis: Abuse of other non-psychoactive substances;Vomiting;Insomnia Presentation: 06/02 11:34 Chief complaint: Patient states: Pt states, "I last used two days ago and I'm unable to ss eat, and I keep blacking out." Pt reports she typically uses "street Percocet/ fentanyl" daily. Coronavirus screen: Client denies travel out of the [place] in the last 14 days. Ebola Screen: Patient denies exposure to infectious person. Patient denies travel to an Ebola-affected area in the 21 days before illness onset. Initial Sepsis Screen: Does the patient meet any 2 criteria? No. Patient's initial sepsis screen is negative. Does the patient have a suspected source of infection? No. Patient's initial sepsis screen is negative. Risk Assessment: Do you want to hurt yourself or someone else? Patient reports no desire to harm self or others. Onset of symptoms was June 01, 2024. 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 - Infectious Disease History:: Denies. - Social history:: Smoking status: Reported history of juuling and/or vaping. Patient uses street drugs, Percocet and Fentanyl daily (pt states "I take it about 10 times a day in order to function"). Pt also reports she uses Xanax bars sometimes. . - Family history:: not pertinent. Screenin:00 [facility] ED Fall Risk Assessment (Adult) History of falling in the last 3 months, aa5 including since admission No falls in past 3 months (0 pts) Confusion or Disorientation No (0 pts) Intoxicated or Sedated No (0 pts) Impaired Gait No (0 pts) Mobility Assist Device Used No (0 pt) Altered Elimination No (0 pt) Score/Fall Risk Level 0 - 2 = Low Risk Oriented to surroundings, Maintained a safe environment, Educated pt \\T\\ family on fall prevention, incl call for assistance when getting out of bed. Abuse screen: Denies threats or abuse. Nutritional screening: No deficits noted. Tuberculosis screening: No symptoms or risk factors identified. Assessment: 12:00 General: Appears uncomfortable, Behavior is calm, cooperative. Pain: Denies pain. aa5 Neuro: Level of Consciousness is awake, alert, obeys commands, Oriented to person, place, time, situation, Reports feeling dizzy and lightheaded . Denies headache. Cardiovascular: Heart tones S1 S2 present Rhythm is regular. Respiratory: Airway is patent Respiratory effort is even, unlabored, Respiratory pattern is regular, symmetrical. GI: Abdomen is flat, non-distended, Bowel sounds present X 4 quads. Abd is soft and non tender X 4 quads. Reports nausea, vomiting. : No signs and/or symptoms were reported regarding the genitourinary system. EENT: No signs and/or symptoms were reported regarding the EENT system. Derm: Skin is pink, warm \\T\\ dry. Musculoskeletal: Range of motion: intact in all extremities. 12:23 Reassessment: Patient is alert, oriented x 3, equal unlabored respirations, skin aa5 warm/dry/pink. 13:40 Reassessment: Patient is alert, oriented x 3, equal unlabored respirations, skin aa5 warm/dry/pink. 13:40 GI: Reports nausea. aa5 14:50 Reassessment: Patient is alert, oriented x 3, equal unlabored respirations, skin aa5 warm/dry/pink. Awaiting clonidine from pharmacy, awaiting ride home for d/c home. . Psych: 12:00 [place] Suicide Severity Screening: In the past month, have you wished you were aa5 or wished you could go to sleep and not wake up? Patient responds "No." "In the past month, have you actually had any thoughts of killing yourself?" Patient responds "no." "In your lifetime, have you ever done anything, started to do anything, or prepared to do anything to end your life?" Patient responds "no.". Vital Signs: 11:34 BP 130 / 83; Pulse 102; Resp 16; Temp 98.2(O); Pulse Ox 100% on R/A; Pain 0/10; ss 12:00 BP 120 / 97; Pulse 84; Resp 20 S; Pulse Ox 100% on R/A; aa5 13:30 BP 132 / 85; Pulse 81; Resp 16 S; Pulse Ox 100% on R/A; aa5 14:50 BP 122 / 91; Pulse 92; Resp 18 S; Temp 98(TE); Pulse Ox 99% on R/A; aa5 11:34 Pain Scale: Adult ss Vincent Coma Score: 14:33 Eye Response: spontaneous(4). Motor Response: obeys commands(6). Verbal Response: tresa oriented(5). Total: 15. ED Course: 11:08 Patient arrived in ED. ra3 11:11 Jose Mayfield MD is Attending Physician. tresa 11:36 Triage completed. ss 11:36 Arm band placed on right wrist. ss 11:55 Carol Philip, RN is Primary Nurse. aa5 12:00 Patient has correct armband on for positive identification. Placed in gown. Bed in low aa5 position. Call light in reach. Side rails up X2. Client placed on continuous cardiac and pulse oximetry monitoring. NIBP monitoring applied. industrial chemist on. Pulse ox on. NIBP on. 12:05 Initial lab(s) drawn, by ak, sent to lab. Inserted saline lock: 20 gauge in right aa5 antecubital area, using aseptic technique. Blood collected. Flushed with 10 mL NS. 12:09 Urine collected: clean catch specimen, sent to lab. aa5 14:43 Kwasi Ramírez MD is Referral Physician. tresa 15:33 No provider procedures requiring assistance completed. IV discontinued, intact, ss bleeding controlled, No redness/swelling at site. Pressure dressing applied. Administered Medications: 12:23 Drug: NS 0.9% IV 1000 ml IV at 1000 ml once; to be given as a bolus over 60 minutes aa5 Route: IV; Rate: 1000 ml; Site: right antecubital; 13:23 Follow up: IV Status: Completed infusion; IV Intake: 1000ml aa5 12:45 Drug: Ondansetron IVP 4 mg IVP once; over 2 minutes Route: IVP; Site: right antecubital;aa5 13:47 Follow up: Response: No adverse reaction aa5 13:38 Drug: Ondansetron IVP 4 mg IVP once; over 2 minutes Route: IVP; Site: right antecubital;jb4 13:46 Follow up: Response: No adverse reaction aa5 13:40 Drug: Promethazine IVP 12.5 mg IVP once; ADD TO IVF Route: IVP; Site: right antecubital;aa5 13:47 Follow up: Response: No adverse reaction aa5 13:46 Drug: NS 0.9% IV 1000 ml IV at 1000 ml once; to be given as a bolus over 60 minutes aa5 Route: IV; Rate: 1000 ml; Site: right antecubital; 14:46 Follow up: IV Status: Completed infusion; IV Intake: 1000ml aa5 13:46 Drug: Rocephin IV 1 grams IV at per protocol once; Given slow IV push per pharmacy aa5 instructions Route: IV; Rate: per protocol; Site: right antecubital; 13:47 Follow up: Response: No adverse reaction aa5 13:50 Follow up: IV Status: Completed infusion aa5 14:00 Follow up: Response: No adverse reaction aa5 14:28 CANCELLED (Duplicate Order): clonidinepatch 0.2 mg/24 hr 1 patches Transdermal once tresa 15:33 Drug: cloNIDine Patch 0.1 mg/24 hr 1 patches Transdermal once {Note: R upper arm.} ss Route: Transdermal; Site: anterior chest wall; Medication: 12:30 VIS not applicable for this client. aa5 Intake: 13:23 IV: 1000ml; Total: 1000ml. aa5 14:46 IV: 1000ml; Total: 2000ml. aa5 Outcome: 14:43 Discharge ordered by . [facility] 15:33 Discharged to home ambulatory, 15:33 Condition: good 15:33 Discharge instructions given to patient, friend, Instructed on discharge instructions, follow up and referral plans. medication usage, Demonstrated understanding of instructions, follow-up care, medications, Prescriptions given X 3, 15:34 Patient left the ED. ss Signatures: Jose Mayfield MD MD cha Calderon, Audri, RN RN aa5 Anamika Swartz RN RN Vladimir Avelar RN RN jb4 Daisha Landers 3
--- NOTE | 2024-06-02 14:44 | EDPHYS ---
Physician Documentation [facility] Name: Brendan Lindsey Age: 18 yrs Sex: Female : 2005 Arrival Date: 06/02/2024 Time: 11: Bed 3 Private MD: EDY Physician Jose Mayfield HPI: 06/02 14:33 This 18 yrs old Female presents to ER via Ambulatory with complaints of tresa substance withdrawal. 14:33 The patient presents to the emergency department with nausea, vomiting, that is tresa intermittent, described as clear fluid, abdominal pain, of the right upper quadrant and left upper quadrant. Onset: The symptoms/episode began/occurred 2 day(s) ago. Possible causes: narcotic wd. The symptoms are aggravated by food , The symptoms are alleviated by remaining still. withdrawal from percocet. nv, not sleeping. Associated signs and symptoms: Pertinent positives: abdominal pain, anorexia, nausea, vomiting. Severity of symptoms: At their worst the symptoms were moderate in the emergency department the symptoms are unchanged. The patient has experienced similar episodes in the past, several times. 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 - Infectious Disease History:: Denies. - Social history:: Smoking status: Reported history of juuling and/or vaping. Patient uses street drugs, Percocet and Fentanyl daily (pt states "I take it about 10 times a day in order to function"). Pt also reports she uses Xanax bars sometimes. . - Family history:: not pertinent. ROS: 14:33 Constitutional: Negative for fever, chills, and weight loss, Eyes: Negative for injury, tresa pain, redness, and discharge, ENT: Negative for injury, pain, and discharge, Neck: Negative for injury, pain, and swelling, Cardiovascular: Negative for chest pain, palpitations, and edema, Respiratory: Negative for shortness of breath, cough, wheezing, and pleuritic chest pain, Back: Negative for injury and pain, : Negative for injury, bleeding, discharge, and swelling, MS/Extremity: Negative for injury and deformity, Skin: Negative for injury, rash, and discoloration, Neuro: Negative for headache, weakness, numbness, tingling, and seizure, Psych: Negative for depression, anxiety, suicide ideation, homicidal ideation, and hallucinations, Allergy/Immunology: Negative for hives, rash, and allergies, Endocrine: Negative for neck swelling, polydipsia, polyuria, polyphagia, and marked weight changes, Hematologic/Lymphatic: Negative for swollen nodes, abnormal bleeding, and unusual bruising, 14:33 Abdomen/GI: Positive for abdominal pain, nausea and vomiting, insomnia, Exam: 14:33 Constitutional: This is a well developed, well nourished patient who is awake, alert, tresa and in no acute distress. Head/Face: Normocephalic, atraumatic. Eyes: Pupils equal round and reactive to light, extra-ocular motions intact. Lids and lashes normal. Conjunctiva and sclera are non-icteric and not injected. Cornea within normal limits. Periorbital areas with no swelling, redness, or edema. ENT: Nares patent. No nasal discharge, no septal abnormalities noted. Tympanic membranes are normal and external auditory canals are clear. Oropharynx with no redness, swelling, or masses, exudates, or evidence of obstruction, uvula midline. Mucous membranes moist. Neck: Trachea midline, no thyromegaly or masses palpated, and no cervical lymphadenopathy. Supple, full range of motion without nuchal rigidity, or vertebral point tenderness. No Meningismus. Chest/axilla: Normal chest wall appearance and motion. Nontender with no deformity. No lesions are appreciated. Cardiovascular: Regular rate and rhythm with a normal S1 and S2. No gallops, murmurs, or rubs. Normal PMI, no JVD. No pulse deficits. Respiratory: Lungs have equal breath sounds bilaterally, clear to auscultation and percussion. No rales, rhonchi or wheezes noted. No increased work of breathing, no retractions or nasal flaring. Abdomen/GI: Soft, non-tender, with normal bowel sounds. No distension or tympany. No guarding or rebound. No evidence of tenderness throughout. Back: No spinal tenderness. No costovertebral tenderness. Full range of motion. Skin: Warm, dry with normal turgor. Normal color with no rashes, no lesions, and no evidence of cellulitis. MS/ Extremity: Pulses equal, no cyanosis. Neurovascular intact. Full, normal range of motion. Neuro: Awake and alert, GCS 15, oriented to person, place, time, and situation. Cranial nerves II-XII grossly intact. Motor strength 5/5 in all extremities. Sensory grossly intact. Cerebellar exam normal. Normal gait. Psych: Awake, alert, with orientation to person, place and time. Behavior, mood, and affect are within normal limits. 14:33 Psych: Behavior/mood is pleasant, cooperative, Affect is calm, Oriented to person, place, time, Patient has no thoughts/intents to harm self or others. Judgement / Insight is normal. Delusions/hallucinations are not present. 14:40 ECG was reviewed by the Attending Physician. [facility] Vital Signs: 11:34 BP 130 / 83; Pulse 102; Resp 16; Temp 98.2(O); Pulse Ox 100% on R/A; Pain 0/10; ss 12:00 BP 120 / 97; Pulse 84; Resp 20 S; Pulse Ox 100% on R/A; aa5 13:30 BP 132 / 85; Pulse 81; Resp 16 S; Pulse Ox 100% on R/A; aa5 14:50 BP 122 / 91; Pulse 92; Resp 18 S; Temp 98(TE); Pulse Ox 99% on R/A; aa5 11:34 Pain Scale: Adult ss Vincent Coma Score: 14:33 Eye Response: spontaneous(4). Motor Response: obeys commands(6). Verbal Response: tresa oriented(5). Total: 15. MDM: 11:11 Medical Screening Exam initiated [facility] 14:38 Differential diagnosis: Nonspecific abd pain, gastritis, pancreatitis, viral tresa gastroenteritis, gastroenteritis. Differential Diagnosis altered mental status, sepsis, flu. Data reviewed: vital signs, nurses notes, lab test result(s), CBC, electrolytes, hepatic panel. I considered the following discharge prescriptions or medication management in the emergency department Medications were administered in the Emergency Department. See MAR. Independent interpretation of the following test(s) in the Emergency Department EKG: See my EKG interpretation above. Test considered but Not performed: CT: no ct ab/pel. Care significantly affected by the following chronic conditions: susstance abuse. 06/02 11:11 Order name: Acetaminophen; Complete Time: 13:08 [facility] 06/02 11:11 Order name: Basic Metabolic Panel; Complete Time: 13:08 [facility] 06/02 11:11 Order name: CBC with Diff; Complete Time: 13: [facility] 06/02 11:11 Order name: ETOH Level; Complete Time: 13: [facility] 06/02 11:11 Order name: Hepatic Function; Complete Time: 13:08 [facility] 06/02 11:11 Order name: PT-INR; Complete Time: 13: [facility] 06/02 11:11 Order name: Ptt, Activated; Complete Time: 13: [facility] 06/02 11:11 Order name: Salicylate; Complete Time: 13: [facility] 06/02 11:11 Order name: Urinalysis w/ reflexes; Complete Time: 13: [facility] 06/02 11:11 Order name: Urine Drug Screen; Complete Time: 13: [facility] 06/02 12:17 Order name: PREGU; Complete Time: 13: [facility] 06/02 13:09 Order name: Urine Culture [facility] 06/02 11:11 Order name: EKG; Complete Time: 11:12 [facility] 06/02 11:11 Order name: EKG - Nurse/Tech; Complete Time: 12:23 [facility] 06/02 11:11 Order name: IV Saline Lock; Complete Time: 12:23 [facility] 06/02 11:11 Order name: Labs collected and sent; Complete Time: 12:23 [facility] 06/02 11:11 Order name: Suicide Screening ([place]); Complete Time: 12:23 [facility] EC:40 Rate is 85 beats/min. Rhythm is regular. QRS [place] is Normal. VT interval is normal. QRS tresa interval is normal. QT interval is normal. No Q waves. T waves are Normal. No ST changes noted. Clinical impression: Normal ECG and No evidence of ischemia. Interpreted by me. Reviewed by me. Administered Medications: 12:23 Drug: NS 0.9% IV 1000 ml IV at 1000 ml once; to be given as a bolus over 60 minutes aa5 Route: IV; Rate: 1000 ml; Site: right antecubital; 13:23 Follow up: IV Status: Completed infusion; IV Intake: 1000ml aa5 12:45 Drug: Ondansetron IVP 4 mg IVP once; over 2 minutes Route: IVP; Site: right antecubital;aa5 13:47 Follow up: Response: No adverse reaction aa5 13:38 Drug: Ondansetron IVP 4 mg IVP once; over 2 minutes Route: IVP; Site: right antecubital;jb4 13:46 Follow up: Response: No adverse reaction aa5 13:40 Drug: Promethazine IVP 12.5 mg IVP once; ADD TO IVF Route: IVP; Site: right antecubital;aa5 13:47 Follow up: Response: No adverse reaction aa5 13:46 Drug: NS 0.9% IV 1000 ml IV at 1000 ml once; to be given as a bolus over 60 minutes aa5 Route: IV; Rate: 1000 ml; Site: right antecubital; 14:46 Follow up: IV Status: Completed infusion; IV Intake: 1000ml aa5 13:46 Drug: Rocephin IV 1 grams IV at per protocol once; Given slow IV push per pharmacy aa5 instructions Route: IV; Rate: per protocol; Site: right antecubital; 13:47 Follow up: Response: No adverse reaction aa5 13:50 Follow up: IV Status: Completed infusion aa5 14:00 Follow up: Response: No adverse reaction aa5 14:28 CANCELLED (Duplicate Order): clonidinepatch 0.2 mg/24 hr 1 patches Transdermal once tresa 15:33 Drug: cloNIDine Patch 0.1 mg/24 hr 1 patches Transdermal once {Note: R upper arm.} ss Route: Transdermal; Site: anterior chest wall; Disposition Summary: 06/02/24 14:43 Discharge Ordered Notes: Location: Home tresa Problem: new tresa Symptoms: have improved tresa Condition: Stable tresa Diagnosis - Abuse of other non-psychoactive substances tresa - Vomiting tresa - Insomnia tresa Followup: tresa - With: Private Physician - When: 2 - 3 days - Reason: Recheck today's complaints, Continuance of care, Re-evaluation by your physician Followup: tresa - With: Kwasi Ramírez MD - When: 2 - 3 days - Reason: Recheck today's complaints, Re-evaluation by your physician Discharge Instructions: - Discharge Summary Sheet tresa - Finding Treatment for Addiction tresa - Substance Use Disorder tresa - Supporting Someone With an Addiction tresa - Vomiting, Adult tresa - Substance Use Disorder and Mental Illness tresa - Illegal Drug Use Information, Adult tresa - Supporting Someone With Substance Use Disorder tresa Forms: - Medication Reconciliation Form tresa - Antibiotic Education tresa - Prescription Opioid Use tresa - Patient Portal Instructions tresa - Leadership Thank You Letter [facility] Prescriptions: - Restoril 15 mg Oral capsule - take 1 capsule ORAL route every day at bedtime; 7 capsule; Refills: 0, Product [facility] Selection Permitted - ondansetron 4 mg Oral Tablet,disintegrating - take 1 tablet ORAL route every 8 hours for 5 days prn n/v; 20 tablet; Refills: tresa 0, Product Selection Permitted - Hydroxyzine HCl 25 mg Oral Tablet - take 1 tablet ORAL route every 6 hours As needed; 30 tablet; Refills: 0, [facility] Product Selection Permitted Signatures: Dispatcher [employer] EDJose Lopez MD MD cha Calderon, Audri RN RN aa5 Anamika Swartz RN RN ss Vladimir Avelar RN RN jb4 Corrections: (The following items were deleted from the chart) 14:28 14:27 cloNIDine Transdermal Patch 0.2 mg/24 hr 1 patches Transdermal once ordered. [facility] tresa
[2024-06-02] MEDS ORDERED: CLONIDINE 0.1 MG/PATCH TD ONE (14:45)
[2024-06-02 17:03] VITALS: BP 130/83; TEMP 98.2; O2SAT 100
--- NOTE | 2024-06-05 12:04 | EKG ---
Test Date: 2024-06-02 Test Time: 12:17:58 Education Officer: NELLI MEASUREMENT RESULTS: Intervals: Rate: 85 AL: 148 QRSD: 130 QT: 386 QTc: 459 Stewart: P: 73 AL: 148 QRS: 84 T: 45 INTERPRETIVE STATEMENTS: Normal sinus rhythm with sinus arrhythmia Right bundle branch block Abnormal ECG No previous ECG available for comparison Electronically Signed On 06-05-24 12:01:52 MOTOR GRADER OPERATOR by Jas Jenkins
== END 2024-06-02 15:34 | disposition home or self-care (01) ==
LOC: ER 11:02
DX: F55.8 Abuse of other non-psychoactive substances (principal); G47.00 Insomnia, unspecified
CPT/HCPCS: 36415; 80048; 80076; 80143; 80179; 80307; 81001; 81025; 82077; 85025; 85610; 85730; 87086; 87088; 93005; 96361; 96374; 96375; 99285; J0696; J2405; J2550; J7030

== ENCOUNTER 2025-04-03 09:04 | Emergency (ER) | payer SELFPAY ==
--- OUTSIDE RECORDS SUMMARY | 2025-04-03 09:11 | XMS REPORT | Continuity of Care Document ---
Author Name Unknown Address [address] [facility]. [address] [place] [address] [facility] Address [address] [facility]. 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 Operator Name Role Phone DARRICK MELTON Primary Care Physician Unavailab EFRA Rinaldi Attending Clinician Unavail NAIMA Evans Attending Clinician UnavailYANCY Diaz Attending Clinician YANCY Bravo Attending Clinician Yancy Bravo MD Attending Clinician [phone] MURPHY TRIPP Attending Clinician Unavailable Nurse, [facility] Attending Clinician Un available Murphy Tripp MD Attending Clinician [phone] Doctor Unassigned, [place] Attending Clinician U eusebio Caraballo, [facility] Lab Attending Clinician Unavailable KRISTEN JACKSON Attending Clinician Unavailable Astrid Landaverde MD Attending Clinician [phone] Elías CAMPOS Attending Clinician Unavailable Elías Kay Attending Clinician [phone] Kristen Jackson PA-C Attending Clinician [phone] JENNIFER RAMOS Attending Clinician Unavailable Jennifer Ramos NP Attending Clinician [phone] ELIJAH MILLER Attending Clinician Unavailable [place]lijah Vergara B Attending Clinician [phone] AfuwapePaige O Attending Clinician Unavailab le Nurse, [facility] Attending Clinician Unava ilable Provider, [facility] Attending Clinician Unavailable Lala WANG, Joyce Baker Attending Clinician Unavailab le Only, [facility] Test Attending Clinician UnavailPoppy Gibbs MD Attending Clinician [phone] POPPY BESS Attending Clinician Unavailable Carmita Goldman Attending Clinician [phone] KRISTEN JACKSON Admitting Clinician Unavailable Payers Payer Name Policy Type Policy Number Effective Date Expirati on Date Source [facility] [id number] 2018 00:00:00 [facility] [place] [facility] [id number] 2024 00:00:00 Problems Condition Name Condition Details Condition Category Status Onset Date Resolution Date Last Treatment Date Treating Clinician Comments Source Encounter for management and injection of depo-Prove ra Encounter for management and injection of depo-Prove ra Disease Active 2022-07 0- 00:00: 00 [facility] Iron deficiency anemia due to chronic blood loss Iron deficiency anemia due to chronic blood loss Disease Active 01-18 00:00: 00 [facility] No known active problems No known active problems Disease [facility] Allergies, Adverse Reactions, Alerts Allergy Name Allergy Type Status Severity Reaction(s) Onset Date Inactive Date Treating Clinician Comments Source Unable to Assess DA Active U 09-23 00:00: 00 [facility] No Known Drug Allergie s DA Active U 09-23 00:00: 00 [facility] NO KNOWN ALLERGIE S Drug Class Active [facility] Social History Social Habit Start Date Stop Date Quantity Comments Source History SDOH [facility]d Drinks [facility] History SDOH Alcohol Binge [facility] History SDOH Alcohol Comment [facility] Gender identity [facility] of Social function 2024-03-28 00:00:00 2024-03-28 00:00:00 [facility] Alcoholic beverage intake 2024-03-28 00:00:00 2024-03-28 00:00:00 Lifetime non-drinker (finding) [facility] Alcohol intake 2023-04-26 00:00:00 2023-04-26 00:00:00 Lifetime non-drinker (finding) [facility] Exposure to SARS-CoV-2 (event) 2022-10-23 00:00:00 2022-11-02 16:50:00 Not sure [facility] Tobacco use and exposure 2022-08-03 00:00:00 2022-08-03 00:00:00 Smokeless tobacco non-user [facility] History SDOH Alcohol Frequency 2019-05-05 00:00:00 2019-05-05 00:00:00 1 [facility] Sex assigned at 2004 00:00:00 2005 00:00:00 [facility] Smoking Status Start Date Stop Date Source Never smoked tobacco [facility] Medications Ordered Medication Name Filled Medication Name Start Date Stop Date Current Medication? Ordering Clinician Indication Dosage Frequency Signature (SIG) Comments Components Source medroxyPROG ESTERone (DEPO-PROVE RA) syringe 150 mg 2022-07 0-16 17:00: 00 04-26 16:08 :00 No [id number] 150mg [facility] medroxyPROG ESTERone (DEPO-PROVE RA) syringe 150 mg 01-29 14:30: 00 01-29 13:52 :00 No [id number] 150mg [facility] NUVARING 0.12-0.015 mg/24 hr vaginal insert 01-18 00:00: 00 01-29 00:00 :00 No [id number] 1{each} Insert 1 Each into vagina every 3 (three) weeks. Insert vaginally and leave in place for 3 consecutiv e weeks, then remove for 1 week. [facility] NaCl 0.9% (NS) bolus infusion 1,000 mL 01-14 23:30: 00 01-14 23:36 :00 No 1000mL at 999 mL/hr, 1,000 mL, IV Infusion, ONCE, 1 dose, On Wed01/14/23 at 1830, STAT [facility] ondansetron (ZOFRAN (PF)) injection 4 mg 01-14 22:15: 00 01-14 22:51 :00 No 4mg 4 mg, Slow IV Push, ONCE, 1 dose, On Wed01/14/23 at 1715, DANY [facility] ondansetron 4 mg disintegrat ing tablet 01-14 00:00: 00 03-28 00:00 :00 No [id number] 4mg Take 1 tablet by mouth every 8 (eight) hours as needed for Nausea and Vomiting (N/V). [facility] NaCl 0.9% (NS) bolus infusion 1,000 mL 01-08 08:45: 00 01-08 08:48 :00 No 1000mL at 999 mL/hr, 1,000 mL, IV Infusion, ONCE, 1 dose, On Wed01/08/23 [facility] 0[facility] ([facility]APRES) tablet 0.1 mg 01-08 08:45: 00 01-08 08:52 :00 No .1mg 0.1 mg, Oral, ONCE, 1 dose, On Wed01/08/23 at 0345, STAT [facility] diazePAM (VALIUM) tablet 5 mg 01-08 08:45: 00 01-08 08:52 :00 No 5mg 5 mg, Oral, ONCE, 1 dose, On Wed01/08/23 at 0345, DANY [facility] proMETHazin e (PHENERGAN) 12.5 mg in NaCl 0.9% (NS) 50 mL IV piggyback 01-08 08:00: 00 01-08 08:10 :00 No 12.5mg 12.5 mg, IV Piggyback, ONCE, 1 dose, On Wed01/08/23 at 0300, DANY [facility] clonazePAM (KLONOPIN) 0.5 mg tablet 01-08 00:00: 00 03-28 00:00 :00 No [id number] .5mg Take 1 tablet by mouth 2 (two) times daily as needed (anxiety and/or irritabili tiy). [facility] ondansetron 4 mg disintegrat ing tablet 01-08 00:00: 00 03-28 00:00 :00 No [id number] 4mg Take 1 tablet by mouth every 12 (twelve) hours as needed for Nausea and Vomiting (N/V). [facility] hydrOXYzine (VISTARIL) 25 mg capsule 01-08 00:00: 00 01-14 04:59 :00 No [id number] 25mg Take 1 capsule by mouth 3 (three) times daily as needed for Anxiety for up to 5 days. [facility] medroxyPROG ESTERone (DEPO-PROVE RA) injection 150 mg 11-03 20:30: 00 11-03 19:44 :00 No [id number] 150mg [facility] fluconazole 150 mg tablet 24 00:00: 00 01-08 00:00 :00 No [facility] cefTRIAXone (ROCEPHIN) injection 500 mg 08-07 20:45: 00 08-07 20:39 :00 No [id number] 500mg [facility] doxycycline hyclate 100 mg tablet 08-07 00:00: 00 01-08 00:00 :00 No [id number] 100mg Take 1 tablet by mouth in the morning and 1 tablet in the evening. [facility] doxycycline hyclate 100 mg tablet 08-06 00:00: 08-07 00:00 :00 No [id number] 100mg Take 1 tablet by mouth in the morning and 1 tablet in the evening. [facility] doxycycline hyclate 100 mg tablet 08-05 00:00: 08-06 00:00 :00 No [id number] 100mg Take 1 tablet by mouth in the morning and 1 tablet in the evening. Do all this for 7 days. [facility] medroxyPROG ESTERone (DEPO-PROVE RA) syringe 150 mg 08-03 23:30: 00 08-03 22:17 :00 No [id number] 150mg [facility] ibuprofen 600 mg tablet 2020-07 00:00: 01-08 00:00 :00 No [id number] 600mg Take 1 tablet by mouth every 8 (eight) hours as needed for Pain (scale 4-6). [facility] norgestimat e-ethinyl estradiol 0.25-35 mg-mcg per tablet 2018-07 203 00:00: 01-08 00:00 :00 No [id number] 2 tab QD until menses stops, then take 1 tab QD. Skip placebo pills and take active pills continuous ly. [facility] ferrous sulfate 325 mg (65 mg iron) EC tablet 2018-07 00:00: 00 03-28 00:00 :00 No [id number] 325mg Take 1 tablet by mouth 2 (two) times daily. [facility] proMETHazin e 25 mg tablet 2018-07 00:00: 01-08 00:00 :00 No [id number] 25mg Take 1 tablet by mouth every 6 (six) hours as needed for Nausea and Vomiting (N/V). [facility] Vital Signs Vital Name Observation Time Observation Value Comments Reinier burris Systolic blood pressure 2024-03-28 20:28:00 135 mm[Hg] [facility] Diastolic blood pressure 2024-03-28 20:28:00 81 mm[Hg] [facility] Heart rate 2024-03-28 20:28:00 69 /min [facility] Respiratory rate 2024-03-28 20:28:00 16 /min [facility] Body height 2024-03-28 20:28:00 170.2 cm [facility] Body weight 2024-03-28 20:28:00 54.885 kg [facility] BMI 2024-03-28 20:28:00 18.95 kg/m2 [facility] Systolic blood pressure 2023-04-26 16:04:00 127 mm[Hg] [facility] Diastolic blood pressure 2023-04-26 16:04:00 76 mm[Hg] [facility] Heart rate 2023-04-26 16:04:00 76 /min [facility] Body temperature 2023-04-26 16:04:00 36.83 Sarah [facility] Respiratory rate 2023-04-26 16:04:00 18 /min [facility] Body weight 2023-04-26 16:04:00 59.693 kg [facility] BMI 2023-04-26 16:04:00 21.24 kg/m2 [facility] Body mass index (BMI) [Percentile] Per age and sex 2023-04-26 16:04:00 47.09 % [facility] Systolic blood pressure 2023-04-20 19:00:00 122 mm[Hg] [facility] Diastolic blood pressure 2023-04-20 19:00:00 84 mm[Hg] [facility] Heart rate 2023-04-20 19:00:00 64 /min [facility] Body temperature 2023-04-20 19:00:00 36.56 Sarah [facility] Body height 2023-04-20 19:00:00 167.6 cm [facility] Body weight 2023-04-20 19:00:00 59.875 kg [facility] BMI 2023-04-20 19:00:00 21.31 kg/m2 [facility] Body mass index (BMI) [Percentile] Per age and sex 2023-04-20 19:00:00 48.05 % [facility] Systolic blood pressure 2023-01-29 13:48:00 105 mm[Hg] [facility] Diastolic blood pressure 2023-01-29 13:48:00 64 mm[Hg] [facility] Heart rate 2023-01-29 13:48:00 65 /min [facility] Body temperature 2023-01-29 13:48:00 36.72 Sarah [facility] Respiratory rate 2023-01-29 13:48:00 18 /min [facility] Body height 2023-01-29 13:48:00 167.6 cm [facility] Body weight 2023-01-29 13:48:00 60.147 kg [facility] BMI 2023-01-29 13:48:00 21.40 kg/m2 [facility] Body mass index (BMI) [Percentile] Per age and sex 2023-01-29 13:48:00 49.96 % [facility] Systolic blood pressure 2023-01-18 20:42:00 110 mm[Hg] [facility] Diastolic blood pressure 2023-01-18 20:42:00 68 mm[Hg] [facility] Heart rate 2023-01-18 20:42:00 72 /min [facility] Body temperature 2023-01-18 20:42:00 36.78 Sarah [facility] Body weight 2023-01-18 20:42:00 59.33 kg [facility] Systolic blood pressure 2023-01-15 00:39:00 131 mm[Hg] [facility] Diastolic blood pressure 2023-01-15 00:39:00 79 mm[Hg] [facility] Heart rate 2023-01-15 00:39:00 69 [facility] Respiratory rate 2023-01-15 00:39:00 18 /min [facility] Oxygen saturation in Arterial blood by Pulse oximetry 2023-01-15 00:39:00 100 /min [facility] Body temperature 2023-01-14 20:55:00 36.61 Sarah [facility] Body weight 2023-01-14 20:55:00 61.236 kg [facility] BMI 2023-01-14 20:55:00 21.79 kg/m2 [facility] Body mass index (BMI) [Percentile] Per age and sex 2023-01-14 20:55:00 54.88 % [facility] Systolic blood pressure 2023-01-08 09:00:00 117 mm[Hg] [facility] Diastolic blood pressure 2023-01-08 09:00:00 69 mm[Hg] [facility] Heart rate 2023-01-08 09:00:00 95 /min [facility] Body temperature 2023-01-08 09:00:00 37 Sarah [facility] Respiratory rate 2023-01-08 09:00:00 18 /min [facility] Oxygen saturation in Arterial blood by Pulse oximetry 2023-01-08 09:00:00 100 /min [facility] Body height 2023-01-08 06:45:00 167.6 cm [facility] Body weight 2023-01-08 06:45:00 60.737 kg [facility] BMI 2023-01-08 06:45:00 21.61 kg/m2 [facility] Body mass index (BMI) [Percentile] Per age and sex 2023-01-08 06:45:00 52.78 % [facility] Systolic blood pressure 2022-11-03 19:41:00 121 mm[Hg] [facility] Diastolic blood pressure 2022-11-03 19:41:00 79 mm[Hg] [facility] Heart rate 2022-11-03 19:41:00 69 /min [facility] Body temperature 2022-11-03 19:41:00 37 Sarah [facility] Respiratory rate 2022-11-03 19:41:00 16 /min [facility] Body height 2022-11-03 19:41:00 170.2 cm [facility] Body weight 2022-11-03 19:41:00 66.679 kg [facility] BMI 2022-11-03 19:41:00 23.02 kg/m2 [facility] Body mass index (BMI) [Percentile] Per age and sex 2022-11-03 19:41:00 68.21 % [facility] Oxygen saturation in Arterial blood by Pulse oximetry 2022-11-03 19:41:00 99 /min [facility] Systolic blood pressure 2022-11-02 21:51:00 125 mm[Hg] [facility] Diastolic blood pressure 2022-11-02 21:51:00 72 mm[Hg] [facility] Heart rate 2022-11-02 21:51:00 97 /min [facility] Body temperature 2022-11-02 21:51:00 37 Sarah [facility] Respiratory rate 2022-11-02 21:51:00 16 /min [facility] Body height 2022-11-02 21:51:00 170.2 cm [facility] Body weight 2022-11-02 21:51:00 63.504 kg [facility] BMI 2022-11-02 21:51:00 21.93 kg/m2 [facility] Body mass index (BMI) [Percentile] Per age and sex 2022-11-02 21:51:00 57.21 % [facility] Oxygen saturation in Arterial blood by Pulse oximetry 2022-11-02 21:51:00 98 /min [facility] Systolic blood pressure 2022-08-07 20:20:00 132 mm[Hg] [facility] Diastolic blood pressure 2022-08-07 20:20:00 65 mm[Hg] [facility] Body height 2022-08-07 20:20:00 167.6 cm [facility] Body weight 2022-08-07 20:20:00 68.04 kg [facility] BMI 2022-08-07 20:20:00 24.21 kg/m2 [facility] Body mass index (BMI) [Percentile] Per age and sex 2022-08-07 20:20:00 77.75 % [facility] Systolic blood pressure 2022-08-03 21:25:00 125 mm[Hg] [facility] Diastolic blood pressure 2022-08-03 21:25:00 75 mm[Hg] [facility] Heart rate 2022-08-03 21:25:00 86 /min [facility] Body temperature 2022-08-03 21:25:00 37.22 Sarah [facility] Respiratory rate 2022-08-03 21:25:00 18 /min [facility] Body height 2022-08-03 21:25:00 162.6 cm [facility] Body weight 2022-08-03 21:25:00 67.586 kg [facility] BMI 2022-08-03 21:25:00 25.58 kg/m2 [facility] Body mass index (BMI) [Percentile] Per age and sex 2022-08-03 21:25:00 84.73 % [facility] Procedures Procedure Date / Time Performed Performing Clinician Source POCT TEST 2024-03-28 00:00:00 Yancy Alcaraz [facility] POCT TEST 2023-04-20 00:00:00 Murphy Tripp [facility] POCT TEST 2023-01-29 13:52:00 Murphy Tripp [facility] CONSENT FOR CONTRACEPTION 2023-01-29 05:01:00 Doctor Unassigned, [place] [facility] POCT TEST 2023-01-14 23:45:00 Elías Campos [facility] URINALYSIS 2023-01-14 23:41:00 Elías Campos [facility] ASSIGNMENT OF BENEFITS 2023-01-14 21:48:15 Docto r Unassigned, [place] [facility] LIPASE 2023-01-14 21:13:00 Elías Campos [facility] MAGNESIUM 2023-01-14 21:13:00 Elías Campos [facility] COMP. METABOLIC PANEL ([id number]) 2023-01-14 21:13:00 Elías Campos [facility] CBC WITH DIFF 2023-01-14 21:13:00 Elías Campos [facility] CONSENT/REFUSAL FOR DIAGNOSIS AND TREATMENT 2023-01-14 20:30:50 Doctor Unassigned, [place] [facility] THYROID STIMULATING HORMONE 2023-01-08 07:14:00 Jennifer Ramos [facility] COMP. METABOLIC PANEL ([id number]) 2023-01-08 07:14:00 Jennifer Ramos [facility] IRON PANEL 2023-01-08 07:14:00 Adam [facility]cques [facility] 2023-01-08 07:14:00 Jennifer Ramos [facility] CBC WITH DIFF 2023-01-08 07:14:00 Jennifer Ramos [facility] URINALYSIS 2023-01-08 07:14:00 Jennifer Ramos [facility] POCT TEST 2023-01-08 07:14:00 Jennifer Ramos [facility] URINE DRUG (IMMUNOASSAY) - COMPREHENSIVE DRUG SCREEN W/O REFLEX 2023-01-08 07:14:00 Jennifer Ramos [facility] CONSENT/REFUSAL FOR DIAGNOSIS AND TREATMENT 2023-01-08 06:40:45 Doctor Unassigned, [place] [facility] POCT TEST 2022-11-02 22:05:00 Elijah Miller [facility] CONSENT/REFUSAL FOR DIAGNOSIS AND TREATMENT 2022-11-02 21:43:43 Doctor Unassigned, [place] [facility] US PELVIS COMPLETE WITH TRANSVAGINAL 2022-08-14 19:36:19 Kristen Jackson [facility] NOTICE OF PRIVACY PRACTICES 2022-08-14 19:07:27 Doctor Unassigned, [place] [facility] CONSENT/REFUSAL FOR DIAGNOSIS AND TREATMENT 2022-08-03 21:16:55 Doctor Unassigned, [place] [facility] POCT TEST 2022-08-03 00:00:00 Rayna Jackson [facility] Encounters Start Date/Time End Date/Time Encounter Type Admission Type Attending Clinicians Care Facility Care Department Encounter ID Source 2021-05-13 03:21:11 Emergency [facility] [id number] [facility] 2025-03-27 13:25:40 2025-03-27 13:25:40 Outpatient [facility] [id number] Jose Gupta 2024-09-10 09:09:00 2024-09-10 14:15:00 Emergency [facility] [id number] [facility] 2024-05-06 14:09:34 2024-05-06 14:09:34 Outpatient [facility] [id number] Jose Gupta 2024-03-29 08:15:00 2024-03-29 08:15:00 Outpatient R EFRA DUONG [facility] [id number] [facility] 2024-03-28 15:45:00 2024-03-28 15:45:00 Office Visit Elza gooden Yancy [facility] [id number] 350.1.13.10 4.2.7.2.686 [id number] [facility] 2024-03-28 15:45:00 2024-03-28 15:44:53 Outpatient R RUBIO-PATRICIO S, YANCY RUBIO-PATRICIO S, YANCY [facility] [id number] [facility] 2024-03-28 15:00:00 2024-03-28 15:00:00 Outpatient R RUBIO-PATRICIO S, YANCY RUBIO-PATRICIO S, YANCY [facility] [id number] [facility] 2024-03-28 15:00:00 2024-03-28 15:00:00 Outpatient R RUBIO-PATRICIO S, YANCY RUBIO-PATRICIO S, YANCY [facility] [id number] [facility] 2023-07-19 09:30:00 2023-07-19 09:30:00 Outpatient MURPHY CHU [facility] [id number] [facility] 2023-04-26 10:30:00 2023-04-26 10:53:09 Outpatient R MURPHY TRIPP [facility] [id number] [facility] 2023-04-26 10:30:00 2023-04-26 10:53:09 Nurse Visit Nurse, [facility] Murphy Tripp [facility] [id number] 350.1.13.10 4.2.7.2.686 [id number] [facility] 2023-04-21 00:00:00 2023-04-21 00:00:00 Patient Secure Msg Doctor Unassigned, [place] [facility] 1.2.840.114 350.1.13.10 4.2.7.2.686 [id number] [facility] 2023-04-21 00:00:00 2023-04-21 00:00:00 Telephone Murphy Tripp [facility] 1.2.840.114 350.1.13.10 4.2.7.2.686 [id number] [facility] 2023-04-21 00:00:00 2023-04-21 00:00:00 Telephone Murphy Tripp [facility] 1.2.840.114 350.1.13.10 4.2.7.2.686 [id number] [facility] 2023-04-20 14:45:00 2023-04-20 14:59:32 Inspector Line Visit 2, [facility] Lab Murphy Tripp [facility] 1.2.840.114 350.1.13.10 4.2.7.2.686 [id number] [facility] 2023-04-20 14:00:00 2023-04-20 14:42:19 Outpatient R MURPHY TRIPP [facility] [id number] [facility] 2023-04-20 14:00:00 2023-04-20 14:42:19 Office Visit Murphy Tripp [facility] [id number] 350.1.13.10 4.2.7.2.686 [id number] [facility] 2023-01-29 15:00:00 2023-01-29 15:00:00 Outpatient R [facility] [id number] [facility] 2023-01-29 08:00:00 2023-01-29 08:47:44 Outpatient R MURPHY TRIPP [facility] [id number] [facility] 2023-01-29 08:00:00 2023-01-29 08:47:44 Nurse Visit Nurse, [facility] Adsam, Murphy Garcia [facility] 1.2.840.114 350.1.13.10 4.2.7.2.686 [id number] [facility] 2023-01-29 00:00:00 2023-01-29 00:00:00 Orders Only Doctor Unassigned, [place] [facility] 1.2.840.114 350.1.13.10 4.2.7.2.686 [id number] [facility] 2023-01-27 00:00:00 2023-01-27 00:00:00 Patient Secure Msg Doctor Unassigned, [place] [facility] 1.2.840.114 350.1.13.10 4.2.7.2.686 [id number] [facility] 2023-01-26 14:30:00 2023-01-26 14:30:00 Outpatient R [facility] [id number] [facility] 2023-01-25 00:00:00 2023-01-25 00:00:00 Telephone Murphy Tripp [facility] 1.2.840.114 350.1.13.10 4.2.7.2.686 [id number] [facility] 2023-01-18 15:30:00 2023-01-18 16:17:02 Outpatient R MURPHY TRIPP [facility] [id number] [facility] 2023-01-18 15:30:00 2023-01-18 16:17:02 [facility] 1.2.840.114 350.1.13.10 4.2.7.2.686 [id number] [facility] 2023-01-14 15:56:00 2023-01-14 19:43:00 Emergency X Elías CAMPOS [facility] E[facility] [id number] [facility] 2023-01-14 15:56:00 2023-01-14 19:43:00 Emergency Elías Campos [facility] 1.2.840.114 350.1.13.10 4.2.7.2.686 [id number] [facility] 2023-01-14 00:00:00 2023-01-14 00:00:00 Telephone Kristen Jackson [facility] 1.2.840.114 350.1.13.10 4.2.7.2.686 [id number] [facility] 2023-01-08 01:51:00 2023-01-08 04:25:00 Emergency X JENNIFER RAMOS [facility] ERT [id number] [facility] 2023-01-08 01:51:00 2023-01-08 04:25:00 Emergency Jennifer Ramos G [facility] 1.2.840.114 350.1.13.10 4.2.7.2.686 [id number] [facility] 2022-11-24 14:30:00 2022-11-24 14:30:00 Outpatient R ELZA S, YANCY ELZA S, YANCY [facility] [id number] [facility] 2022-11-03 14:30:00 2022-11-03 14:42:51 Outpatient R [facility]EN[facility]TA [facility] [id number] [facility] 2022-11-03 14:30:00 2022-11-03 14:42:51 Nurse Visit Nurse, [facility] Renetta [facility] 1.2.840.114 350.1.13.10 4.2.7.2.686 [id number] [facility] 2022-11-02 16:54:00 2022-11-02 17:46:00 Emergency X ANGELA ELIJAH [facility] ERT [id number] [facility] 2022-11-02 16:54:00 2022-11-02 17:46:00 Emergency Elijah Miller [facility] 1.2.840.114 350.1.13.10 4.2.7.2.686 [id number] [facility] 2022-11-02 14:00:00 2022-11-02 14:00:00 Outpatient Jorge JACKSON KRISTEN [facility] [id number] [facility] 2022-09-23 12:45:00 2022-09-23 12:45:00 Emergency Emergency Afuwape, Lukuman [facility] [id number] [facility] 2022-09-23 12:45:00 2022-09-23 12:45:00 Emergency [facility] [id number] [facility] 2022-08-17 00:00:00 2022-08-17 00:00:00 Telephone Renetta Kristen [facility] 1.2.840.114 350.1.13.10 4.2.7.2.686 [id number] [facility] 2022-08-14 13:08:27 2022-08-14 23:59:00 Outpatient R KRISTEN JACKSON [facility] [id number] [facility] 2022-08-14 13:00:00 2022-08-14 23:59:00 Hospital Encounter Kristen Jackson [facility] 1.2840.114 350.1.13.10 4.2.7.2.686 [id number] [facility] 2022-08-14 00:00:00 2022-08-14 00:00:00 Orders Only Doctor Unassigned, [place] [facility] 1.2840.114 350.1.13.10 4.2.7.2.686 [id number] [facility] 2022-08-07 14:00:00 2022-08-07 14:15:00 Nurse Visit Nurse, [facility] Women[facility] Renetta [facility] BUILDING 1.2840.114 350.1.13.10 4.2.7.2.686 [id number] [facility] 2022-08-07 14:00:00 2022-08-07 14:00:00 [facility] [id number] [facility] 2022-08-05 00:00:00 2022-08-05 00:00:00 Case Management Renetta [facility] BUILDING 1.2840.114 350.1.13.10 4.2.7.2.686 [id number] [facility] 2022-08-05 00:00:00 2022-08-05 00:00:00 Telephone Renetta [facility] BUILDING 1.2.840.114 350.1.13.10 4.2.7.2.686 [id number] [facility] 2022-08-03 15:00:00 2022-08-03 16:18:43 Outpatient R KRISTEN JACKSON [facility] [id number] [facility] 2022-08-03 15:00:00 2022-08-03 16:18:43 Office Visit Kristen [place] [facility] 1.2.840.114 350.1.13.10 4.2.7.2.686 [id number] [facility] 2022-08-03 00:00:00 2022-08-03 00:00:00 Orders Only Doctor Unassigned, [place] [facility] 1.2.840.114 350.1.13.10 4.2.7.2.686 [id number] [facility] 2022-08-03 00:00:00 2022-08-03 00:00:00 Letter (Out) Kristen [place] [facility] 1.2.840.114 350.1.13.10 4.2.7.2.686 [id number] [facility] 2022-07-30 00:00:00 2022-07-30 00:00:00 Case Management Kristen [place] [facility] 1.2.840.114 350.1.13.10 4.2.7.2.686 [id number] 134 [id number] [facility] 2021-07-17 00:00:00 2021-07-17 00:00:00 Telephone Nurse, [facility] J[facility]NE [facility] 1.2840.114 350.1.13.10 4.2.7.2.686 [id number] [facility] 2021-07-17 00:00:00 2021-07-17 00:00:00 Telephone Provider, [facility]ACED BY [facility] BU[facility] 1.2840.114 350.1.13.10 4.2.7.2.686 [id number] [facility] 2021-07-16 00:00:00 2021-07-16 00:00:00 Letter (Out) Joyce Reeves [facility] 1.2840.114 350.1.13.10 4.2.7.2.686 [id number] [facility] 2021-07-16 00:00:00 2021-07-16 00:00:00 Telephone Provider, [facility]ACED BY [facility] BU[facility] 1.2840.114 350.1.13.10 4.2.7.2.686 [id number] [facility] 2021-07-14 12:45:00 2021-07-14 13:00:00 Laboratory Only Only, Ang Juan Test Dimas [facility] OFF[facility] BUILDING 1.2840.114 350.1.13.10 4.2.7.2.686 [id number] [facility] 2021-07-14 12:45:00 2021-07-14 12:45:00 Outpatient R POPPY BESS [facility] [id number] [facility] 2021-07-14 00:00:00 2021-07-14 00:00:00 Orders Only Doctor Unassigned, [place] [facility] 1.2840.114 350.1.13.10 4.2.7.2.686 [id number] [facility] 2021-04-12 20:29:00 2021-04-12 21:50:00 Emergency Carmita Wilhelm [facility] 1.2840.114 350.1.13.10 4.2.7.2.686 [id number] [facility] Results Test Description Test Time Test Comments Results Result Co mments Source CULTURE, [id number] 11:36:05SPECIMEN NUMBER: [id number] CULTURE, URINE SPECIMEN NUMBER: [id number] SOURCE: URINE REPORT STATUS: FINAL ISOLATE NUMBER [...] CFU/ML UROGENITAL DEA PRESENT NO COMMON PATHOGENSPOCT [id number] 20:24:00* Test Item Value Reference Range Interpretation Comme nts POCT PREG (test code = 1605) Negative On board controls acceptable with C Line (test code = 3574) Yes POCT PREG LOT # (test code = 3575) POCT PREG TEST DATE ( test code = 3576) [facility] [id number] 19:00:00* Test Item Value Reference Range Interpretation Comme nts POCT PREG (test code = 1605) Negative On board controls acceptable with C Line (test code = 3574) Yes POCT PREG LOT # (test code = 3575) POCT PREG TEST DATE ( test code = 3576) [facility] [id number] 19:00:00* Test Item Value Reference Range Interpretation Comme nts POCT PREG (test code = 1605) Negative On board controls acceptable with C Line (test code = 3574) Yes POCT PREG LOT # (test code = 3575) POCT PREG TEST DATE ( test code = 3576) [facility] [id number] 13:52:00* Test Item Value Reference Range Interpretation Comme nts POCT PREG (test code = 1605) Negative On board controls acceptable with C Line (test code = 3574) Yes POCT PREG LOT # (test code = 3575) POCT PREG TEST DATE ( test code = 3576) Lab Interpretation (test cod e = 64863-6) Normal [facility] [id number] 23:45:00* Test Item Value Reference Range Interpretation Comme nts POCT PREG (test code = 1605) Negative On board controls acceptable with C Line (test code = 3574) Yes Lab Interpretation (test cod e = 52247-3) Normal [facility]2023-07-06 22:17:18* Test Item Value Reference Range Interpretation Comme nts MAGNESIUM (test code = 1746426792) 2.1 mg/dL 1.7-2.4 Lab Interpretation (test cod e = 29197-5) [facility] (21812[facility]20[facility]-14 22:16:58* Test Item Value Reference Range Interpretation Comme nts NA (test code = 0006186157) 142 mmol/L 135-145 K (test code = 4400534149) 4.6 mmol/L 3.5-5.0 CL (test code = 8588312387) 105 mmol/L 98-108 CO2 TOTAL (test code = 1268000569) 26 mmol/L 23-31 AGAP (test code = 1158037746) 11 2-16 BUN (test code = 1275210898) 7 mg/dL 7-23 GLUCOSE (test code = 0773644728) 96 mg/dL 70-110 CREATININE (test code = 8864685124) 0.61 mg/dL 0.50-1.04 TOTAL BILI (test code = 0563158050) 0.3 mg/dL 0.1-1.1 CALCIUM (test code = 2197611712) 9.3 mg/dL 8.6-10.6 T PROTEIN (test code = 6466139505) 7.8 g/dL 6.3-8.2 ALBUMIN (test code = 7292089245) 4.4 g/dL 3.5-5.0 ALK PHOS (test code = 3410672563) 74 U/L 34-122 ALTv (test code = 1742-6) 24 U/L 5-35 AST(SGOT) (test code = 7524859684) 23 U/L 13-40 eGFR (test code = 9490486704) 127.7 mL/min/1.73m2 TREVOR (test code = TREVOR) [...] or urine or abnormalities in imaging tests). [facility] CenterLIPASE20[facility]-07-[facility] 22:16:37* Test Item Value Reference Range Interpretation Comme nts LIPASE (test code = 5095159368) 65 U/L 0-220 Lab Interpretation (test cod e = 00211-2) Normal [facility] CenterCB WITH [id number] 22:04:59* Test Item Value Reference Range Interpretation Comme nts WBC (test code = 6690-2) 9.18 See_Comment [Automated [employer]] The system which generated this result transmitted reference range: 4.50 - 13.50 10*3/?L. The reference range was not used to interpret this result as normal/abnormal. RBC (test code = 789-8) 4.24 See_Comment [Automated [employer]] The system which generated this result [...] g/dL 32.0-36.0 L RDW-SD (test code = 41337-9) 43.1 fL 38.5-49.0 RDW-CV (test code = 788-0) 17.8 % 11.5-14.0 H PLT (test code = 777-3) 355 See_Comment [Automated [employer] ge] The system which generated this result transmitted reference range: 135 - 361 10*3/?L. The reference range was not used to interpret this result as normal/abnormal. MPV (test code = 11568-9) 11.8 fL 9.4-13.3 NRBC/100 WBC (test code = 0693656723) 0.0 See_Comment [Automated [employer] ssage] The system which generated this result transmitted reference range: 0.0 - 10.0 /100 WBCs. The reference range was not used to interpret this result as normal/abnormal. NRBC x10^3 (test code = 1912119799) See_Comment [Automated [employer] ge] The system which generated this result transmitted reference range: 10*3/?L. The reference range was not used to interpret this result as normal/abnormal. GRAN MAT (NEUT) % (test code = 770-8) 80.7 % IMM GRAN % (test code = 5906628300) 0.40 % LYMPH % (test code = 736-9) 15.5 % MONO % (test code = 5905-5) 2.9 % EOS % (test code = 713-8) 0.1 % BASO % (test code = 706-2) 0.4 % GRAN MAT x10^3(ANC) (test code = 5899203179) 7.40 10*3/uL 1.50-10.30 IMM GRAN x10^3 (test code = 1819291727) 0.04 10*3/uL 0.00-0.06 LYMPH x10^3 (test code = 731-0) 1.42 10*3/uL 0.70-7.40 MONO x10^3 (test code = 742-7) 0.27 10*3/uL 0.00-0.50 EOS x10^3 (test code = 711-2) 0.00-0.40 BASO x10^3 (test code = 704-7) 0.04 10*3/uL 0.00-0.10 Lab Interpretation (test code = 59149-4) Abnormal [facility] CenterIRO [id number] 08:59:00* Test Item Value Reference Range Interpretation Comme nts IRON (test code = 8022908231) 109 ug/dL 50-160 TIBC (test code = 4142377073) 542 ug/dL 250-410 H % FE SAT (test code = 7785507269) 20 % 20-50 Lab Interpretation (test cod e = 06601-4) Abnormal [facility] WITH [id number] 08:35:35* Test Item Value Reference Range Interpretation Comme nts WBC (test code = 6690-2) 9.25 See_Comment [Automated messa ge] The system which generated this result transmitted reference range: 4.50 - 13.50 10*3/?L. The reference range was not used to interpret this result as normal/abnormal. RBC (test code = 789-8) 4.42 See_Comment [Automated messa ge] The system which [...] g/dL 32.0-36.0 L RDW-SD (test code = 06167-3) 41.0 fL 38.5-49.0 RDW-CV (test code = 788-0) 17.1 % 11.5-14.0 H PLT (test code = 777-3) 312 See_Comment [Automated [employer] ge] The system which generated this result transmitted reference range: 135 - 361 10*3/?L. The reference range was not used to interpret this result as normal/abnormal. MPV (test code = 84534-9) 11.5 fL 9.4-13.3 IPF % (test code = 9684071440) 4.6 % 0.0-7.4 Platelet count measured by fluorescence method. NRBC/100 WBC (test code = 3166340920) 0.0 See_Comment [Automated [employer] ssage] The system which generated this result transmitted reference range: 0.0 - 10.0 /100 WBCs. The reference range was not used to interpret this result as normal/abnormal. NRBC x10^3 (test code = 8207132633) See_Comment [Automated [employer]] The system which generated this result transmitted reference range: 10*3/?L. The reference range was not used to interpret this result as normal/abnormal. GRAN MAT (NEUT) % (test code = 770-8) 59.1 % IMM GRAN % (test code = 2048526739) 0.20 % LYMPH % (test code = 736-9) 33.4 % MONO % (test code = 5905-5) 6.7 % EOS % (test code = 713-8) 0.1 % BASO % (test code = 706-2) 0.5 % GRAN MAT x10^3(ANC) (test code = 3999056420) 5.46 10*3/uL 1.50-10.30 IMM GRAN x10^3 (test code = 8569277342) 0.00-0.06 LYMPH x10^3 (test code = 731-0) 3.09 10*3/uL 0.70-7.40 MONO x10^3 (test code = 742-7) 0.62 10*3/uL 0.00-0.50 H EOS x10^3 (test code = 711-2) 0.00-0.40 BASO x10^3 (test code = 704-7) 0.05 10*3/uL 0.00-0.10 Lab Interpretation (test code = 34860-0) Abnormal [facility] CenterTHYROID STIMULATING [id number] 08:30:38 * Test Item Value Reference Range Interpretation Comme nts TSH (test code = 3160887787) 1.34 See_Comment [Automated [employer] ge] The system which generated this result transmitted reference range: 0.45 - 4.70 mIU/L. The reference range was not used to interpret this result as normal/abnormal. Lab Interpretation (test code = 85981-9) Normal 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 [facility]all [facility] Medical CenterCOMP. METABOLIC PANEL (81067)2023-01-08 07:54:04* Test Item Value Reference Range Interpretation Comme nts NA (test code = 6763848365) 144 mmol/L 135-145 K (test code = 8060043402) 4.3 mmol/L 3.5-5.0 CL (test code = 3640222143) 106 mmol/L 98-108 CO2 TOTAL (test code = 1917773582) 24 mmol/L 23-31 AGAP (test code = 7259677346) 14 2-16 BUN (test code = 0580282476) 8 mg/dL 7-23 GLUCOSE (test code = 2829390509) 92 mg/dL 70-110 CREATININE (test code = 6216496087) 0.73 mg/dL 0.50-1.04 TOTAL BILI (test code = 4806908692) 0.3 mg/dL 0.1-1.1 CALCIUM (test code = 4865000299) 9.5 mg/dL 8.6-10.6 T PROTEIN (test code = 1923605011) 8.2 g/dL 6.3-8.2 ALBUMIN (test code = 9347945694) 4.7 g/dL 3.5-5.0 ALK PHOS (test code = 1533430099) 60 U/L 34-122 ALTv (test code = 1742-6) 14 U/L 5-35 AST(SGOT) (test code = 5254738234) 21 U/L 13-40 eGFR (test code = 3478707027) 103.8 mL/min/1.73m2 TREVOR (test code = TREVOR) Association [...] or urine or abnormalities in imaging tests). [facility] [id number] 07:14:00* Test Item Value Reference Range Interpretation Comme nts POCT PREG (test code = 1605) Negative On board controls acceptable with C Line (test code = 3574) Yes POCT PREG LOT # (test code = 3575) [id number] POCT PREG TEST DATE ( test code = 3576) 2024-04-16 Lab Interpretation (test cod e = 42762-5) Normal [facility] CenterPO[facility] [id number] 22:05:00* Test Item Value Reference Range Interpretation Comme nts POCT PREG (test code = 1605) negative On board controls acceptable with C Line (test code = 3574) present POCT PREG LOT # (test code = 3575) 97880 POCT PREG TEST DATE ( test code = 357) 4095504 Lab Interpretation (test cod e = 12353-9) Normal [facility] CenterSmear Qrqxxo7881-77-82 12:55:00* Test Item Value Reference Range Interpretation Comme nts Platelet Estimate (test code = PLTEST) Adequate Normal RBC Morphology (test code = RM) Abnormal Normal Hypochromasia (test code = HYPO) 2+ None Seen A Microcytosis (test code = MICROC) 1+ None Seen A Coronavirus NAAT, [id number] 12:55:00* Test Item Value Reference Range Interpretation Comme nts Coronavirus NAAT, COVD19 (test code = CFDHCMX0WUXG) Reference Range: Negative Coronavirus NAAT, COVD19 (test code = WGJZQWS2PWBL8.1) ical-devices/emergenc u-qzn-axsprtmkqtcfaw. SARS-CoV-2 NAAT Result: (test code = SARS-CoV-2 NAAT Result:) Negative by RT-PCR Complete Blood Count Auto [id number] 12:55:00* Test Item Value Reference Range Interpretation [...] = NRBCP) 0 % UA, Urinalysis Rflx Cult/Jiskt8968-66-79 12:55:00* Test Item Value Reference Range Interpretation Comme nts Color,Urine (test code = UCOL) Yellow Yellow Clarity,Urine (test code = UCLAR) Clear Clear Ph, Urine (test code = UPH) 6.0 5.0-9.0 N Specific [place],Urine (test code = USG) 1.020 1.005-1.030 N [...] Small mg/dL Negative A UF REFLEXUF REFLEXUrine Qyjohlxargu7790-98-23 12:55:00* Test Item Value Reference Range Interpretation Comme nts RBC,Urine (test code = URBCUF) 6-10 /HPF 0-2 A WBC,Urine (test code = UWBCUF) 11-25 /HPF 0-5 A Epithelial Cell,Urine (test code = UECUF) 6-10 /HPF 0-5 A Casts,Urine (test code = UCASTUF) 0-5 /LPF None Seen Bacteria,Urine (test code = UBACTUF) None Seen /hpf None Seen UF REFLEXUF REFLEXComprehensive Metabolic Grlvs3020-94-97 12:55:00* Test Item Value Reference Range Interpretation [...] a race coefficient. Additional information canbe found at:[email or web address] [email or web address] 5.pdf ([email or web address]) [Automated message] The system [...] = ALP) 68 U/L 46-116 N Ethanol Ncgkq0344-03-60 12:55:00* Test Item Value Reference Range Interpretation Comme nts Ethanol (test code = ETOH) < 3 mg/dL The pharmacologi drew response to blood alcohol levels mayvary from individual to individual. The fatal concentrationhas been reported to be >400mg/dL. Drug Screen,Hbzbr4640-30-79 12:55:00* Test Item Value Reference Range Interpretation [...] Qual (test code = HCGU) Negative Negative POCT [id number] 22:11:00* Test Item Value Reference Range Interpretation Comme nts POCT PREG (test code = 1605) Negative On board controls acceptable with C Line (test code = 3574) Yes POCT PREG LOT # (test code = 3575) POCT PREG TEST DATE ( test code = 3576) [facility] CenterPO[facility] [id number] 22:11:00* Test Item Value Reference Range Interpretation Comme nts POCT PREG (test code = 1605) Negative On board controls acceptable with C Line (test code = 3574) Yes POCT PREG LOT # (test code = 3575) POCT PREG TEST DATE ( test code = 3576) [facility] Notes Date/Time Note Provider Source 2023-01-27 09:06:42 Formatting of this n ote might be different from the original. Per Provider- okay to come in as nurse visit for Depo and consents. Family Archival Solutionst message sent. MARYELLEN ORDONEZ RN 01/27/2023 9:07 AM Maryellen Ordonez RN [facility] 2023-01-25 12:24:08 Formatting of this n ote might be different from the original. Speaking with provider. MARYELLEN ORDONEZ RN 01/25/2023 12:24 PM [facility] 2023-01-25 10:36:00 Formatting of this n ote might be different from the original. Patient states she recently switched to the ring last week but she has not used it. She is wanting to come in for the depo instead of the ring and is requesting call back at [phone]. Maria E Brooks [facility]"
[2025-04-03 09:53] LABS: Absolute Lymphocytes (CBC) 1.6 K/uL (0.7-4.9); Hematocrit 38.5 % (36.0-45.0); Hemoglobin 12.8 g/dL (12.0-15.0); MCH 28.9 pg (27.0-35.0); MCHC 33.4 g/dL (32.0-36.0); MCV 86.5 fL (80-100); MPV 8.0 fL (7.6-11.3); Nucleated RBC Absolute Count 0.0 (0-0); Nucleated Red Blood Cells % 0.1 % (0-0); RBC Red Blood Cell Count 4.45 M/uL (3.86-4.86); White Blood Count 3.80 thou/uL (4.3-10.9)
[2025-04-03 10:20] LABS: Anion Gap 8.4 mEq/L (5.0-15.0); BUN Blood Urea Nitrogen 9 mg/dL (7-18); Glucose Level 94 mg/dL (74-106); Potassium 3.4 mEq/L (3.5-5.1)
[2025-04-03 10:21] LABS: HCG, Quantitative < 1 mIU/mL (1-3)
--- NOTE | 2025-04-03 10:29 | EDPHYS ---
Physician Documentation [facility] Name: Brendan Lindsey Age: 19 yrs Sex: Female : 2005 Arrival Date: 04/03/2025 Time: 09:04 Bed 13 Private MD: ED Physician Jose Mayfield HPI: 04/03 09:29 This 19 yrs old Female presents to ER via Ambulatory with complaints of kb Vaginal Bleeding, + Preg <12wks. 09:29 Patient is a 19-year-old female who presents for vaginal bleeding and lower abdominal kb cramping that started yesterday. Reports LMP 02/20/25. G1, . States she was scheduled to have her first OB appointment today at 1030 but came here instead due to the bleeding and cramping.. 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 - Infectious Disease History:: Denies. - Social history:: Smoking status: unknown. ROS: 09:29 Constitutional: As per HPI kb Exam: :29 Constitutional: This is a well developed, well nourished patient who is awake, alert, kb and in no acute distress. Head/Face: Normocephalic, atraumatic. ENT: Moist Mucous membranes Cardiovascular: Regular rate Respiratory: Respirations even and unlabored. No increased work of breathing. Talking in full sentences Abdomen/GI: Soft, non-tender. No distention Skin: Warm, dry with normal turgor. Normal color. MS/ Extremity: Pulses equal, no cyanosis. Neurovascular intact. Full, normal range of motion. Neuro: Awake and alert, GCS 15, oriented to person, place, time, and situation. Vital Signs: 09:25 BP 121 / 83; Pulse 65; Resp 16; Pulse Ox 100% ; bp 10:34 BP 128 / 90; Pulse 75; Resp 16; Pulse Ox 100% ; bp MDM: 09:13 Medical Screening Exam initiated kb 10:27 Differential diagnosis: ectopic , abnormal menstrual cycle. Data reviewed: kb vital signs, nurses notes. Historians other than the Patient: Parent: mother. Counseling: I had a detailed discussion with the patient and/or guardian regarding the historical points, exam findings, and any diagnostic results supporting the discharge/admit diagnosis, lab results, the need for outpatient follow up, a family practitioner, to return to the emergency department if symptoms worsen or persist or if there are any questions or concerns that arise at home. 04/03 09:13 Order name: Abo/rh Typing; Complete Time: 10:58 kb 04/03 09:13 Order name: Basic Metabolic Panel; Complete Time: 10:22 kb 04/03 09:13 Order name: CBC with Diff; Complete Time: 10:04 kb 04/03 09:13 Order name: Test, Urine; Complete Time: 10:11 kb 04/03 09:13 Order name: Quantitative Hcg; Complete Time: 10:22 kb 04/03 09:13 Order name: IV Saline Lock; Complete Time: 10:31 kb 04/03 09:13 Order name: Labs collected and sent; Complete Time: 10:31 kb 04/03 09:13 Order name: NPO; Complete Time: 10:31 kb Administered Medications: No medications were administered Disposition Summary: 04/03/25 10:28 Discharge Ordered Notes: Location: Home kb Condition: Stable kb Diagnosis - Irregular menstruation, unspecified kb Followup: kb - With: Emergency Department - When: As needed - Reason: Worsening of condition Followup: kb - With: Private Physician - When: 2 - 3 days - Reason: Recheck today's complaints, Continuance of care, Re-evaluation by your physician Discharge Instructions: - Discharge Summary Sheet kb - Abnormal Uterine Bleeding, Sosa-vi-Cylh kb Forms: - Medication Reconciliation Form kb - Antibiotic Education kb - Prescription Opioid Use kb - Patient Portal Instructions kb - Leadership Thank You Letter kb Signatures: Dispatcher [employer] EDNM Cyndee Mckeon, SOCIAL MEDIA EDITOR-C SOCIAL MEDIA EDITOR-Luis Carlos Casillas, RN RN bp Corrections: (The following items were deleted from the chart) 09: 09:13 ABO/RH TYPING+BB.LAB.BRZ ordered. EDMS EDMS 09:14 09:13 BASIC METABOLIC PANEL+C.LAB.BRZ ordered. EDMS EDMS 09:14 09:13 CBC+H.LAB.BRZ ordered. EDMS EDMS :14 09:13 Test, Urine+UC.LAB.BRZ ordered. EDMS EDMS 09:14 09:13 QUANTITATIVE HCG+C.LAB.BRZ ordered. EDMS EDMS 09:14 Transvaginal Ob+US.RAD.BRZ ordered. EDMS EDMS
--- NOTE | 2025-04-03 10:29 | ER ---
Nurse's Notes [facility] Name: Brendan Lindsey Age: 19 yrs Sex: Female : 2005 Arrival Date: 04/03/2025 Time: 09:04 Bed 13 Private MD: Diagnosis: Irregular menstruation, unspecified Presentation: 04/03 09:25 Chief complaint: Patient states: +UPT AT HOME YESTERDAY, CRAMPING AND VAG BLEEDING THIS bp AM. Coronavirus screen: At this time, the client does not indicate any symptoms associated with coronavirus-19. Ebola Screen: No symptoms or risks identified at this time. Initial Sepsis Screen: Does the patient meet any 2 criteria? No. Patient's initial sepsis screen is negative. Does the patient have a suspected source of infection? No. Patient's initial sepsis screen is negative. Risk Assessment: Do you want to hurt yourself or someone else? Patient reports no desire to harm self or others. Onset of symptoms was April 03, 2025. 09:25 Method Of Arrival: Ambulatory bp 09:25 Acuity: LALA 3 bp Triage Assessment: :27 General: Appears in no apparent distress. Behavior is cooperative, appropriate for age, bp anxious. Pain: Denies pain. EENT: No deficits noted. Neuro: No deficits noted. Cardiovascular: No deficits noted. Respiratory: No deficits noted. GI: No signs and/or symptoms were reported involving the gastrointestinal system. : Reports vaginal bleeding that is. Derm: No deficits noted. Musculoskeletal: No deficits noted. 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 - Infectious Disease History:: Denies. - Social history:: Smoking status: unknown. Screenin:32 [facility] ED Fall Risk Assessment (Adult) History of falling in the last 3 months, bp including since admission No falls in past 3 months (0 pts) Confusion or Disorientation No (0 pts) Intoxicated or Sedated No (0 pts) Impaired Gait No (0 pts) Mobility Assist Device Used No (0 pt) Altered Elimination No (0 pt) Score/Fall Risk Level 0 - 2 = Low Risk Oriented to surroundings. Abuse screen: Denies threats or abuse. Denies injuries from another. Nutritional screening: No deficits noted. Tuberculosis screening: No symptoms or risk factors identified. Assessment: 09:28 General: SEE TRIAGE NOTE. bp Vital Signs: 09:25 BP 121 / 83; Pulse 65; Resp 16; Pulse Ox 100% ; bp 10:34 BP 128 / 90; Pulse 75; Resp 16; Pulse Ox 100% ; bp ED Course: 09:07 Patient arrived in ED. al6 09:13 [facility]C [facility] kb 09:13 Jose Mayfield MD is Attending Physician. kb 09:24 Radiology exam delayed due to test not completed at this time. aa4 09:25 Luis Carlos Baca, RN is Primary Nurse. bp 09:26 Triage completed. bp 09:27 Arm band placed on. bp 09:45 Initial lab(s) drawn, by me, sent to lab. Inserted saline lock: 20 gauge in right bp antecubital area, using aseptic technique. Blood collected. Flushed with 10 mL NS. 10:32 Patient has correct armband on for positive identification. bp 11:03 No provider procedures requiring assistance completed. IV discontinued, intact, bp bleeding controlled, No redness/swelling at site. Pressure dressing applied. Administered Medications: No medications were administered Outcome: 10:28 Discharge ordered by MD. kb 11:03 Discharged to home ambulatory, bp 11:03 Condition: stable 11:03 Discharge instructions given to patient, Instructed on discharge instructions, follow up and referral plans. Demonstrated understanding of instructions, follow-up care, 11:03 Patient left the ED. bp Signatures: Cyndee Mckeon FNP-C FNP-Ckb Frazier, Amanda aa4 Luis Carlos Baca, RN RN bp Shira León al6
[2025-04-03 11:07] VITALS: O2SAT 100
[2025-04-03 11:09] VITALS: BP 128/90
== END 2025-04-03 11:03 | disposition home or self-care (01) ==
LOC: ER 09:04
DX: N92.6 Irregular menstruation, unspecified (principal)
CPT/HCPCS: 36415; 80048; 81025; 84702; 85025; 86900; 86901; 99283